=== PATIENT | male | born 1975 | race Caucasian/White ===

== ENCOUNTER 2017-05-14 14:00 | Outpatient (CLI) | payer BC ==
[~2017-05-14] VITALS: Ht 182.9 cm; Wt 113.4 kg
[2017-05-14] MEDS ORDERED: MULT1TAB69 PO (14:30)
[2017-05-14] MEDS ORDERED: CETI10TA17 PO (14:30)
[2017-05-14] MEDS ORDERED: ASCO-129 PO (14:30)
[2017-05-14] MEDS ORDERED: OMG1KC PO (14:30)
== END 2017-05-14 14:51 ==
LOC: PREOP 14:00
PROVIDERS: ATTEND Urology
DX: Z01.818 Encounter for other preprocedural examination (principal); I86.1 Scrotal varices

== ENCOUNTER 2017-05-19 05:59 | Day surgery (SDC) | payer BC, MEDICAID ==
[~2017-05-19] VITALS: Ht 182.9 cm; Wt 113.4 kg
[~2017-05-19 05:59] MED LIST: ASCO-129 PO; CETI10TA17 PO; MULT1TAB69 PO; OMG1KC PO
[2017-05-19] MEDS ORDERED: NS (IVPB) 50 ML ONE (06:18)
[2017-05-19] MEDS ORDERED: ceFAZolin 1,000 MG (ANCEF) VIAL ONE (06:18)
[2017-05-19 06:20] VITALS: BP 141/101
[2017-05-19] MEDS ORDERED: FAMOTIDINE 20MG/2ML IV (PEPCID) IV ONE (06:30)
[2017-05-19] MEDS: LACTATED RINGERS 1,000 ML IV PRN ×3 (06:43→09:05)
[2017-05-19] MEDS ORDERED: ceFAZolin INJECTION 1,000 MG in NS (IVPB) 50 ML IV ONE (06:45)
[2017-05-19] MEDS ORDERED: MIDAZOLAM 2 MG/2 ML (VERSED) VIAL ONE (07:02)
--- NOTE | 2017-05-19 07:03 | Progress Note-Pre Operative ---
Pre-Operative Progress Note H&P Reviewed The H&P was reviewed, patient examined and no changes noted. Date Seen by Provider: May 19, 2017 Time Seen by Provider: 07:03 Date H&P Reviewed: May 19, 2017 Time H&P Reviewed: 07:03 Pre-Operative Diagnosis: LT TESTICULAR PAIN AND GRADE 3 LT VARICOCELE KYLE MONTERROSO MD May 19, 2017 7:03 am
--- NOTE | 2017-05-19 07:04 | Progress Note-Post Operative ---
Post-Operative Progess Note Surgeon (s)/Pulp Beater (s) Surgeon KYLE MONTERROSO MD Pulp Beater: N/A Pre-Operative Diagnosis LT TESTICULAR PAIN AND GRADE 3 LT VARICOCELE Post-Operative Diagnosis SAME Procedure & Operative Findings Date of Procedure 05/19/17 Procedure Performed/Findings LT SPERMATIC VEIN LIGATION Anesthesia Type GENERAL Estimated Blood Loss Estimated blood loss (mL): NEGLIGIBLE Specimens/Packing Specimens Removed LT SPERMATIC VEINS Packing: N/A KYLE MONTERROSO MD May 19, 2017 7:04 am
--- NOTE | 2017-05-19 07:07 | Discharge Inst-Urology ---
Discharge Inst-Urology Discharge Medications New, Converted, or Re-newed RX: RX on Chart Patient Instructions/Follow Up Plan Please make appointment to been seen in office in 2 weeks. Rest till then and scrotal support Showers, no bath Ice to Lt groin and scrotum in RR and then at home for 6 hrs and then PRN Increase oral fluids for 48 hours and then as needed. Diet and Activity as tolerated. If questions or concerns contact your physician Or seek help at emergency department. KYLE MONTERROSO MD May 19, 2017 7:07 am
[2017-05-19] MEDS ORDERED: morphine INJ 10 MG/ML 1ML (SYR OR VIAL) ONE (07:38)
[2017-05-19] MEDS ORDERED: ROCURONIUM 50 MG/5 ML (ZEMURON) VIAL IV ONE (08:17)
[2017-05-19] MEDS ORDERED: LIDOCAINE PF 2% 5 ML (XYLOCAINE) VIAL ONE (08:17)
[2017-05-19] MEDS ORDERED: proPOfol 200 MG/20 ML (DIPRIVAN) VIAL IV ONE (08:17)
[2017-05-19] MEDS ORDERED: SEVOFLURANE (ULTANE) 15 ML INHAL SOLN ONE ×2 (08:17→08:34)
[2017-05-19] MEDS ORDERED: LIDOCAINE JELLY 2% (XYLOCAINE) 5 ML TUBE ONE (08:17)
[2017-05-19] MEDS ORDERED: CEPH-507 PO (08:43)
[2017-05-19] MEDS ORDERED: HYDR-3874 PO (08:43)
[2017-05-19] MEDS ORDERED: MEPERIDINE (DEMEROL) INJ 50 MG/ML IVP PRN (08:45)
[2017-05-19] MEDS ORDERED: ONDANSETRON 4 MG/2 ML (SDV) Z0FRAN IVP PRN (08:45)
[2017-05-19] MEDS: morphine INJ 10 MG/ML 1ML (SYR OR VIAL) IVP PRN ×3 (08:57→09:07)
[2017-05-19 09:40] VITALS: BP 144/88
[2017-05-19] MEDS ORDERED: HYDROcodone/APAP 5 MG/325 MG (LORTAB) TAB ONE (09:42)
[2017-05-19] MEDS ORDERED: HYDROcodone/APAP 5 MG/325 MG (LORTAB) TAB PO PRN (10:00)
[2017-05-19 10:10] VITALS: BP 146/88
[2017-05-19 10:40] VITALS: BP 127/87
[2017-05-19 12:00] VITALS: BP 127/87
--- NOTE | 2017-05-19 16:51 | OPERATIVE REPORT ---
DATE OF SERVICE: 05/19/2017 PREOPERATIVE DIAGNOSIS: Left grade 3 varicocele with orchialgia refractory to medical treatment. POSTOPERATIVE DIAGNOSIS: Left grade 3 varicocele with orchialgia refractory to medical treatment. OPERATION PERFORMED: Left spermatic vein ligation. SURGEON: Kyle Monterroso M.D. ANESTHESIA: General. COMPLICATIONS: None. PROCEDURE: The patient under general anesthesia in supine position, genitalia, abdomen and thigh were prepped and draped in the usual sterile fashion. A left inguinal incision was made, carried through the skin, subcutaneous tissue and Marcel's fascia. The spermatic cord was seen right there, very redundant, and I folded to the opening into the external oblique. I could identify easily 2 large spermatic veins present there. So I went ahead and excised a good portion of the larger one very proximally and with 2-0 silk ligatures. Then, the other one was also dealt similarly, it was smaller in size. There was no further enlarged veins at this point. There were no enlarged veins in the inguinal floor. I did not see any recent opened external oblique since the veins were removed successfully. I replaced his spermatic cord and pulled on the testicle, which fold with the spermatic cord as much as allowed. A closure was performed in 2 layers, the Marcel's and subcutaneous tissue with interrupted 3-0 plain and the skin with surrounding 4-0 Vicryl subcuticular suture. Steri-Strips and dressing was applied. Estimated blood loss, negligible. [place], instrument counts correct x2. The patient tolerated the procedure and anesthesia well and was sent to recovery room in stable condition. Job ID: [id number] DocumentID: [id number] Dictated Date: 05/19/2017 08:30:35 Systems Requirements Planner Date: 05/19/2017 13:20:01 Dictated By: KYLE MONTERROSO MD
== END 2017-05-19 12:10 | disposition home or self-care (01) ==
LOC: SDC 05:59
PROVIDERS: ATTEND Urology
DX: I86.1 Scrotal varices (principal); K21.9 Gastro-esophageal reflux disease without esophagitis; G47.33 Obstructive sleep apnea (adult) (pediatric)
CPT/HCPCS: 87081

== ENCOUNTER 2017-08-05 13:31 | Observation (INO) | payer BC, MEDICAID ==
[~2017-08-05] VITALS: Ht 182.9 cm; Wt 106.3 kg
[~2017-08-05 13:31] MED LIST changes: -LEVO500T80 PO; -LOPE-134 PO; -NAPR-915 PO
--- NOTE | 2017-08-05 14:01 | ED GU-Male ---
General Chief Complaint: -Male Stated Complaint: TESTICULAR PAIN Nursing Triage Note: Patient advises testicular pain for approximately one week that has become progressively worse. He advises he had an ultrasound done this morning after seeing Dr. Monterroso and was advised he may have a testicular torsion. Pt. states was supposed to see Dr. Monterroso at 2m today however the pain has become progressively worse. Source: patient Exam Limitations: no limitations History of Present Illness Date Seen by Provider: Aug 05, 2017 Time Seen by Provider: 13:49 Initial Comments Here with complaint of left testicular pain that's been intermittent over the last week. Much worse since this morning. He did have ultrasound today that had some findings concerning for possible torsion on the left side. His postoperative an appointment with Dr. Monterroso at 2 p.m. today but pain was worsening significant to the ER. He did try Naprosyn this morning. Last meal was at 830 this morning. Denies dysuria or diarrhea. Does complain of swelling to the cord of the testicle into the groin area. Timing/Duration: week, getting worse, intermittent Severity/Quality: moderate, severe, aching Location: scrotal Radiation: left flank Activities at Onset: none Sexual [place] History: single partner Associated Symptoms: abdominal pain, No dysuria, No fever/chills, No lower back pain, No mass, No nausea/vomiting, swelling, No urinary frequency Allergies and Home Medications Allergies Coded Allergies: Penicillins (Verified Allergy, Unknown, HIVES, 05/14/17) fentanyl (Verified Allergy, Unknown, itching, 05/14/17) sulfamethoxazole (Verified Allergy, Unknown, vomiting, 05/14/17) trimethoprim (Verified Allergy, Unknown, vomiting, 05/14/17) Home Medications Ascorbic Acid 500 Mg Tablet.er, 500 MG PO DAILY, (Reported) Cephalexin 500 Mg Capsule, 500 MG PO BID Prescribed by: DENISE PUENTE on 05/19/17842 Cetirizine HCl 10 Mg Tablet, 10 MG PO DAILY, (Reported) Hydrocodone/Acetaminophen 1 Each Tablet, 1-2 EACH PO Q4H PRN for PAIN Prescribed by: DENISE PUENTE on 05/19/17842 Multivitamin 1 Each Tablet, 1 EACH PO DAILY, (Reported) [place] 3 Polyunsat Fatty Acids 1,000 Mg Cap, 1,000 MG PO DAILY, (Reported) Patient Home Medication List Home Medication List Reviewed: Yes Constitutional: see HPI, chills, fever EENTM: no symptoms reported Respiratory: no symptoms reported Cardiovascular: no symptoms reported Gastrointestinal: No diarrhea, No nausea, No vomiting Genitourinary: denies dysuria, pain Musculoskeletal: no symptoms reported Skin: no symptoms reported All Other Systemes Reviewed Negative Unless Noted: Yes Past Uvzjlho-Csguqj-Qophwr Hx Patient Social History Alcohol Use: Occasionally Uses Recreational Drug Use: No Smoking Status: Never a Smoker Recent Foreign Travel: No Contact w/Someone Who Travel: No Recent Infectious Disease Expo: No Recent Hopitalizations: No Physical Abuse: No Sexual Abuse: No Immunizations Up To Date Date of Influenza Vaccine: Feb 07, 2017 Seasonal Allergies Seasonal Allergies: Yes Surgeries History of Surgeries: Yes (COLON RESECTION WITH COLOSTOMY THEN REVERSAL, varicous vein ) Surgeries: Testicular Respiratory History of Respiratory Disorde: No (MILD SLEEP APNEA) Cardiovascular History of Cardiac Disorders: No Neurological History of Neurological Disord: No Gastrointestinal History of Gastrointestinal Di: Yes Gastrointestinal Disorders: Colitis, Irritable Bowel Musculoskeletal History of Musculoskeletal Dis: No Endocrine History of Endocrine Disorders: No Cancer History of Cancer: No Psychosocial History of Psychiatric Problem: No Suicide Risk Score: 0 Integumentary History of Skin or Integumenta: No Blood Transfusions History of Blood Disorders: No Reviewed Nursing Assessment Reviewed/Agree w Nursing PMH: Yes Family Medical History Significant Family History: No Pertinent Family Hx Physical Exam Vital Signs Vital Signs - First Documented 08/05/17 13:43 Temp 98.6 Pulse 87 Resp 14 B/P (MAP) 133/100 (111) Pulse Ox 98 O2 Delivery Room Air Capillary Refill : Less Than 3 Seconds General Appearance: WD/WN, no apparent distress HEENT: PERRL/EOMI, pharynx normal Neck: full range of motion, supple Cardiovascular: regular rate, rhythm, no murmur Respiratory: lungs clear, normal breath sounds Gastrointestinal: non tender, soft Back: normal inspection, no CVA tenderness, no vertebral tenderness Extremities: non-tender, normal inspection Neurologic/Psychiatric: alert, oriented x 3 Skin: normal color, warm/dry Progress/Results/Core Measures Suspected Sepsis Recent Fever Within 48 Hours: No Infection Criteria Present: None New/Unexplained Altered Menta: No Sepsis Screen: No Definite Risk Sepsis Diagnosis: SIRS Temperature:98.6 Pulse: 87 Respiratory Rate: 14 Laboratory Tests 08/05/17 14:05: White Blood Count 6.7 Blood Pressure 133 /100 Mean: 111 Laboratory Tests 08/05/17 14:05: Platelet Count 218 Results/Orders Lab Results Laboratory Tests Test 08/05/17 14:00 08/05/17 14:05 Range/Units Urine Color YELLOW Urine Clarity CLEAR Urine pH 7 5-9 Urine Specific [place] 1.015 L 1.016-1.022 Urine Protein NEGATIVE NEGATIVE Urine Glucose (UA) NEGATIVE NEGATIVE Urine Ketones NEGATIVE NEGATIVE Urine Nitrite NEGATIVE NEGATIVE Urine Bilirubin NEGATIVE NEGATIVE Urine Urobilinogen NORMAL NORMAL MG/DL Urine Leukocyte Esterase NEGATIVE NEGATIVE Urine RBC (Auto) NEGATIVE NEGATIVE Urine RBC RARE /HPF Urine WBC NONE /HPF Urine Squamous Epithelial Cells NONE /HPF Urine Crystals NONE /LPF Urine Bacteria NEGATIVE /HPF Urine Casts NONE /LPF Urine Mucus NEGATIVE /LPF Urine Culture Indicated NO White Blood Count 6.7 4.3-11.0 10^3/uL Red Blood Count 5.29 4.35-5.85 10^6/uL Hemoglobin 15.1 13.3-17.7 G/DL Hematocrit 45 40-54 % Mean Corpuscular Volume 85 80-99 FL Mean Corpuscular Hemoglobin 29 25-34 PG Mean Corpuscular Hemoglobin Concent 34 32-36 G/DL Red Cell Distribution Width 13.7 10.0-14.5 % Platelet Count 218 130-400 10^3/uL Mean Platelet Volume 11.7 H 7.4-10.4 FL Neutrophils (%) (Auto) 60 42-75 % Lymphocytes (%) (Auto) 30 12-44 % Monocytes (%) (Auto) 6 0-12 % Eosinophils (%) (Auto) 4 0-10 % Basophils (%) (Auto) 0 0-10 % Neutrophils # (Auto) 4.0 1.8-7.8 X 10^3 Lymphocytes # (Auto) 2.0 1.0-4.0 X 10^3 Monocytes # (Auto) 0.4 0.0-1.0 X 10^3 Eosinophils # (Auto) 0.3 0.0-0.3 10^3/uL Basophils # (Auto) 0.0 0.0-0.1 10^3/uL My Orders Orders - ZOË AYALA MD Cbc With Automated Diff (08/05/17 13:59) Comprehensive Metabolic Panel (08/05/17 13:59) Ua Culture If Indicated (08/05/17 13:59) Saline Lock/Iv-Start (08/05/17 13:59) Morphine Injection (Morphine Injection (08/05/17 14:04) Ceftriaxone Injection (Rocephin Injectio (08/05/17 14:30) Vital Signs/I&O Vital Sign - Last 12Hours 08/05/17 13:43 Temp 98.6 Pulse 87 Resp 14 B/P (MAP) 133/100 (111) Pulse Ox 98 O2 Delivery Room Air Capillary Refill : Less Than 3 Seconds Blood Pressure Mean: 111 Progress Note : Progress Note Seen and evaluated. I did discuss the case with Dr. Monterroso on patient's arrival due to ultrasound results. He is in the OR now and will come up afterwards. He is requesting exam, labs and UA. IV, labs, UA and morphine 5 mg IV ordered due to significant pain. Monitor patient. 1411: Dr. Monterroso in the ER evaluating patient. 1425: Dr. Monterroso is requesting admission, Rocephin 1 g IV and to remain nothing by mouth. Orders written. Rocephin 1 g IV ordered. Admit, observation status. Patient agrees to plan. Diagnostic Imaging Diagonstic Imaging: Ultrasound Plain Films/CT/US/NM/MRI: other Comments US from earlier today. NAME: ERIN TRIANA [facility] REC#: [id number] PT STATUS: REG CLI : 1975 PHYSICIAN: KYLE MONTERROSO MD ADMIT DATE: 08/05/17/RAD Signed Date of Exam: 08/05/17 US SCROTUM (Testicle) [id number] INDICATION: Left testicular pain. Patient had prior scrotal surgery 2 months ago for varicosities. The right testicle measures 4.5 x 2.6 x 2.8 cm and the left testicle measures 3.0 x 2.2 x 2.4 cm. Right testicle demonstrates homogeneous echotexture. No discrete testicular masses seen. There is not normal blood flow on the right. Left testicle is heterogeneous and demonstrates generalized hypoechogenicity. In addition, no internal blood flow is detected, suspicious for testicular torsion. There is a varicocele along the lateral aspect of the left scrotum. No significant hydrocele on the left is present. There is a small right hydrocele. There is some mixed echogenicity noted in the region of the left groin left inguinal canal, nonspecific but could potentially represent a fat-containing hernia. No peristalsing bowel loops are seen. Impression: 1. No evidence of testicular mass. There is heterogeneity and hypoechogenicity involving the left testicle with no identifiable internal blood flow. Features are concerning for left testicular torsion. 2. Left varicocele. 3. Right hydrocele. 4. Heterogeneous tissue in the left groin, perhaps owing to a fat-containing inguinal hernia. No peristalsing herniated bowel loops are seen. Dr. Monterroso was notified of these results prior to this dictation. Dictated by: Dictated on workstation # [id number] Dict: 08/05/17 1011 Trans: 08/05/17 1049 Interpreted by: SOLA BOWMAN MD Electronically signed by: SOLA BOWMAN MD 08/05/17 1049 Departure Communication (Admissions) Time/Spoke to Admitting Phy: 13:47 Impression Impression: Primary Impression: Testicular/scrotal pain Disposition: ADMITTED INPATIENT Condition: Stable Admissions Decision to Admit Reason: Admit from ER (General) Decision to Admit/Date: Aug 05, 2017 Time/Decision to Admit Time: 14:25 Departure-Patient Inst. Referrals: FLOYD GUNTER MD (PCP/Family) Primary Care Physician ZOË AYALA MD Aug 05, 2017 14:01
[2017-08-05] MEDS ORDERED: morphine INJ 10 MG/ML 1ML (SYR OR VIAL) IVP STA (14:04)
[2017-08-05 14:24] LABS: BASOPHILS % (AUTO) 0 % (0-10); EOSINOPHILS # (AUTO) 0.3 10^3/uL (0.0-0.3); EOSINOPHILS % (AUTO) 4 % (0-10); HEMATOCRIT 45 % (40-54); HEMOGLOBIN 15.1 G/DL (13.3-17.7); LYMPHOCYTES % (AUTO) 30 % (12-44); MEAN CORPUSCULAR HEMOGLOBIN 29 PG (25-34); MEAN CORPUSCULAR HGB CONC 34 G/DL (32-36); MEAN CORPUSCULAR VOLUME 85 FL (80-99); MEAN PLATELET VOLUME 11.7 FL (7.4-10.4); MONOCYTES # (AUTO) 0.4 X 10^3 (0.0-1.0); MONOCYTES % (AUTO) 6 % (0-12); NEUTROPHILS % (AUTO) 60 % (42-75); PLATELET COUNT 218 10^3/uL (130-400); RED BLOOD COUNT 5.29 10^6/uL (4.35-5.85); RED CELL DISTRIBUTION WIDTH 13.7 % (10.0-14.5); WHITE BLOOD COUNT 6.7 10^3/uL (4.3-11.0)
[2017-08-05 14:24] LABS: BILIRUBIN,URINE NEGATIVE (NEGATIVE); CLARITY,URINE CLEAR; COLOR,URINE YELLOW; GLUCOSE, URINE (UA) NEGATIVE (NEGATIVE); KETONES,URINE NEGATIVE (NEGATIVE); LEUKOCYTE ESTERASE ,URINE NEGATIVE (NEGATIVE); NITRITE,URINE NEGATIVE (NEGATIVE); PH,URINE 7 (5-9); PROTEIN,URINE NEGATIVE (NEGATIVE); UROBILINOGEN,URINE NORMAL (NORMAL)
[2017-08-05] MEDS ORDERED: cefTRIAXone INJECTION 1,000 MG in NS (IVPB) 100 ML IV ONE (14:30)
[2017-08-05 14:32] LABS: BACTERIA,URINE NEGATIVE /HPF; RBC,URINE RARE /HPF
[2017-08-05 15:13] LABS: ALANINE AMINOTRANSFERASE 35 U/L (0-55); ALBUMIN 4.1 GM/DL (3.2-4.5); ALKALINE PHOSPHATASE 72 U/L (40-136); BILIRUBIN,TOTAL 0.4 MG/DL (0.1-1.0); BUN/CREATININE RATIO 15; CALCIUM 8.8 MG/DL (8.5-10.1); CARBON DIOXIDE 26 MMOL/L (21-32); CHLORIDE 108 MMOL/L (98-107); CREATININE SERUM 0.78 MG/DL (0.60-1.30); GFR ESTIMATED > 60; GLUCOSE 78 MG/DL (70-105); POTASSIUM 3.4 MMOL/L (3.6-5.0); SODIUM 141 MMOL/L (135-145); TOTAL PROTEIN 6.7 GM/DL (6.4-8.2)
[2017-08-05] MEDS ORDERED: NAPR-915 PO (15:16)
[2017-08-05] MEDS ORDERED: LEVO500T80 PO (15:16)
[2017-08-05 15:43] VITALS: BP 131/87
[2017-08-05] MEDS: NS IV 1000 ML 1,000 ML IV SCH (16:11)
[2017-08-05] MEDS ORDERED: ONDANSETRON 4 MG/2 ML (SDV) Z0FRAN IV PRN (16:15)
[2017-08-05] MEDS ORDERED: diphenhydrAMINE 50 MG/ML INJ (BENADRYL) IV PRN (16:15)
[2017-08-05] MEDS ORDERED: CATHETER FLUSH 10 ML SYR IV PRN (16:15)
--- NOTE | 2017-08-05 18:39 | HISTORY AND PHYSICAL ---
DATE OF SERVICE: CHIEF COMPLAINT: Left testicular pain. HISTORY OF PRESENT ILLNESS: A 42-year-old white man, who underwent an uneventful left spermatic vein ligation on 05/19/2017 for a symptomatic left grade III varicocele. He had a good recovery except that he was having pain and swelling in the left scrotum, was treated for epididymitis, first seen on 05/22 and then he was seen again on the . He was doing and feeling much better. Because the epididymis was still enlarged and firm, I elected to continue the antibiotic for another 10 days. He came back on 07/08 back to normal with no problem, no swelling, no pain. However, on 07/31, I saw him in [facility] complaining again of low back pain radiating to the left testicle, tenderness and firmness again in the left scrotum. He had a recurrent left epididymitis. The epididymis was firm and tender as well as the spermatic cord. He was put again on Levaquin because he was allergic to Bactrim and some Naprosyn. A testicular ultrasound was ordered, which was done this morning and was concerned about the vascularity of the testicle. The patient denies any other complaints. SOCIAL HISTORY: , 1 child. No smoking, no alcohol, no drugs. FAMILY HISTORY: Diabetes and cancer of cervix. ALLERGIES: He is allergic to PENICILLIN and BACTRIM. No anaphylaxis. MEDICAL ILLNESSES: Ulcerative colitis, depression and history of stones. MEDICATION: Per chart. PAST SURGICAL HISTORY: Beside the above-mentioned one bowel surgery for ulcerative colitis. PHYSICAL EXAMINATION: VITAL SIGNS: Per chart. GENERAL: Well-nourished, well-developed, in no acute distress at all. SKIN: Warm and dry. HEENT: The head is normocephalic. NECK: Supple. No bruits. ENT: No pallor, no icterus. CHEST: Clear and nontender. HEART: Regular rate and rhythm, no murmur. ABDOMEN: Soft, nontender. EXTREMITIES: Lower extremities with no edema or cyanosis. NEUROLOGIC: Grossly intact. Oriented x3. GENITOURINARY: Phallus circumcised and adequate meatus. Examination of the scrotum is completely normal. Both testicles are down in the scrotum normal. Not drawn up. Normal cremasteric reflex. The only abnormality was that the left spermatic cord was little enlarged and tender and firm as well as the epididymis. There was some tenderness over the testicle. IMPRESSION: Left epididymal orchitis, acute on top of chronic, doubt testicular torsion. PLAN: I had a lengthy discussion with the patient and his explaining them the situation and give the option of scrotal exploration for any possible torsion, which clinically does not fit the diagnosis, especially the lack of acuteness, lack of severity, the age of the patient, physical examination, versus admit for IV Rocephin, observe, recheck in couple of hours and decide again. We will keep the patient n.p.o. in case they elected that option understanding the possibility of losing the testicle if it is indeed torsion that was the only way to find out was to explore. We will recheck the patient in a couple of hours and decide accordingly. I came back 2 hours later, examined him and no change. We re-discussed again the possibilities with the patient and his and elected to continue observation and manage according to the progress. 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 Job ID: [id number] DocumentID: [id number] Dictated Date: 08/05/2017 18:12:32 Ventilating Engineer Date: 08/05/2017 18:38:15 Dictated By: KYLE MONTERROSO MD
[2017-08-05] MEDS: morphine INJ 4 MG/ML 1 ML (VIAL/SYRINGE) IV PRN (19:37)
[2017-08-05 20:00] VITALS: BP 133/87
[2017-08-06] VITALS (7 sets, daily range): BP systolic 124–134; BP diastolic 65–87
[2017-08-06] MEDS: NS IV 1000 ML 1,000 ML IV SCH (04:23)
[2017-08-06] MEDS: cefTRIAXone 1 GM/NS 100 ML IVPB IV SCH ×2 (09:32)
--- NOTE | 2017-08-06 11:19 | Progress Note-Urology ---
Progress Note-Urology Progress Notes/Assess & Plan Progress/Assessment & Plan AFEBRILE, VSS. DOING AND FEELING MUCH BETTER. PAIN MUCH BETTER. SPERMATIC CORD AND EPIDIDYMIS MUCH SOFTER AND LESS SWOLLEN, NOT TENDER. TESTIS FEELS NORMAL AND NON TENDER. Final Diagnosis LT EPIDIDYMOORCHITIS KYLE MONTERROSO MD Aug 06, 2017 11:19
[2017-08-06] MEDS ORDERED: LOPE-134 PO (11:53)
[2017-08-06] MEDS: morphine INJ 4 MG/ML 1 ML (VIAL/SYRINGE) IV PRN (21:20)
[2017-08-07 04:00] VITALS: BP 145/86
[2017-08-07 07:56] VITALS: BP 133/90
--- NOTE | 2017-08-07 08:50 | Progress Note-Urology ---
Progress Note-Urology Progress Notes/Assess & Plan Progress/Assessment & Plan CONTINUES IMPROVING. NO COMPLAINTS. DISCHARGE WITH INSTRUCTIONS AND RX Final Diagnosis LT EPIDIDYMOORCHITIS KYLE MONTERROSO MD Aug 07, 2017 8:50 am
--- NOTE | 2017-08-07 08:55 | Discharge Inst-Urology ---
Discharge Inst-Urology Discharge Medications New, Converted, or Re-newed RX: RX given to Patient/Fam Patient Instructions/Follow Up Plan Discharge after Rocephin dose today with scrotal support for 10 days Patient is all set with Rx to get OP IV ABX (Rocephin 1gm every 24hrs) at [facility] ED for 7 days starting tomorrow morning Keep appointment in August No heavy lifting or straining or sex a week Ice PRN to scrotum Increase oral fluids for 48 hours and then as needed. Activity as tolerated. If questions or concerns contact your physician Or seek help at emergency department. KYLE MONTERROSO MD Aug 07, 2017 8:55 am
[2017-08-07] MEDS: cefTRIAXone 1 GM/NS 100 ML IVPB IV SCH ×2 (09:40)
[2017-08-07] MEDS: NS IV 1000 ML 1,000 ML IV SCH ×2 (09:41→09:42)
== END 2017-08-07 08:50 | disposition home or self-care (01) ==
LOC: EDUNIT# 13:31 → ER 13:33 → 4TH 14:52 → UNDOADMOB 14:52 → 4TH 15:42
PROVIDERS: ADMIT Urology; ATTEND Urology
DX: N45.3 Epididymo-orchitis (principal); K51.90 Ulcerative colitis, unspecified, without complications; F32.9 Major depressive disorder, single episode, unspecified; Z87.442 Personal history of urinary calculi; Z88.0 Allergy status to penicillin; Z88.1 Allergy status to other antibiotic agents
CPT/HCPCS: 36415; 80053; 81000; 85025; 96365; 96375; G0378

== ENCOUNTER → 2017-08-05 | Outpatient (CLI) | payer BC, MEDICAID ==
[~2017-08-05] MED LIST changes: +CEPH-507 PO; +HYDR-3870 PO; +LEVO500T80 PO; +LOPE-134 PO; +NAPR-915 PO
--- NOTE | 2017-08-05 10:32 | Diagnostic Imaging Report ---
INDICATION: Left testicular pain. Patient had prior scrotal surgery 2 months ago for varicosities. The right testicle measures 4.5 x 2.6 x 2.8 cm and the left testicle measures 3.0 x 2.2 x 2.4 cm. Right testicle demonstrates homogeneous echotexture. No discrete testicular masses seen. There is not normal blood flow on the right. Left testicle is heterogeneous and demonstrates generalized hypoechogenicity. In addition, no internal blood flow is detected, suspicious for testicular torsion. There is a varicocele along the lateral aspect of the left scrotum. No significant hydrocele on the left is present. There is a small right hydrocele. There is some mixed echogenicity noted in the region of the left groin left inguinal canal, nonspecific but could potentially represent a fat-containing hernia. No peristalsing bowel loops are seen. Impression: 1. No evidence of testicular mass. There is heterogeneity and hypoechogenicity involving the left testicle with no identifiable internal blood flow. Features are concerning for left testicular torsion. 2. Left varicocele. 3. Right hydrocele. 4. Heterogeneous tissue in the left groin, perhaps owing to a fat-containing inguinal hernia. No peristalsing herniated bowel loops are seen. Dr. Griffin was notified of these results prior to this dictation. Dictated by: Dictated on workstation # [id number]
== END ==
LOC: RAD 08:50
PROVIDERS: ATTEND Urology
DX: I86.1 Scrotal varices (principal); N43.3 Hydrocele, unspecified; N45.1 Epididymitis
CPT/HCPCS: 76870

== ENCOUNTER → 2019-07-13 | Outpatient (CLI) | payer BC, MEDICAID, OTHER ==
[~2019-07-13] MED LIST changes: +LEVO500T80 PO; +LOPE-134 PO; +NAPR-915 PO
== END ==
LOC: CARD 09:40
PROVIDERS: ATTEND Internal Medicine Cardiovascular Disease
DX: R07.89 Other chest pain (principal); I10 Essential (primary) hypertension; E66.9 Obesity, unspecified; E78.2 Mixed hyperlipidemia
CPT/HCPCS: 93306; 93351

== ENCOUNTER → 2019-09-12 | Outpatient (CLI) | payer OTHER ==
--- NOTE | 2019-09-12 13:07 | Diagnostic Imaging Report ---
PROCEDURE: CT abdomen and pelvis without contrast. TECHNIQUE: Multiple contiguous axial images were obtained through the abdomen and pelvis without the use of intravenous contrast. Auto Exposure Controls were utilized during the CT exam to meet ALARA standards for radiation dose reduction. INDICATION: Abdominal pain. COMPARISON: None. FINDINGS: The included portions of the lung bases are clear. CT ABDOMEN: The patient is status post previous colectomy. The small bowel loops are nondistended. A nonobstructive left renal calculus is identified. No renal calculi are seen on the right. No ureteral calculi identified on either side. Additionally, there is no hydroureteronephrosis or other evidence of obstruction. No focal renal masses are seen on this noncontrast exam. The adrenal glands, spleen, pancreas, and liver have an unremarkable noncontrast CT appearance. There is no loculated fluid collection, free fluid, or free air within the abdomen. No abnormal mesenteric or retroperitoneal adenopathy is seen. The osseous structures show no acute abnormalities. CT PELVIS: The urinary bladder is unopacified. No calculi are seen within the bladder. There is no loculated fluid collection, free fluid, or free air within the pelvis. No abnormal lymph nodes are identified. The osseous structures show no acute abnormalities. IMPRESSION: 1. No acute abnormalities are seen within the abdomen or pelvis. 2. Single punctate nonobstructive left renal calculus. Dictated by: Dictated on workstation # [id number]
== END ==
LOC: RAD 10:59
PROVIDERS: ATTEND Family Medicine
DX: N20.0 Calculus of kidney (principal)
CPT/HCPCS: 74176

== ENCOUNTER → 2019-09-20 | Outpatient (CLI) | payer OTHER ==
[2019-09-20 16:21] LABS: CHLORIDE 108 MMOL/L (98-107); POTASSIUM 3.8 MMOL/L (3.6-5.0); SODIUM 141 MMOL/L (135-145)
[2019-09-20 16:22] LABS: CALCIUM 8.9 MG/DL (8.5-10.1)
[2019-09-20 16:23] LABS: GLUCOSE 103 MG/DL (70-105); TOTAL PROTEIN 6.8 GM/DL (6.4-8.2)
[2019-09-20 16:24] LABS: CARBON DIOXIDE 26 MMOL/L (21-32)
[2019-09-20 16:25] LABS: BILIRUBIN,TOTAL 0.2 MG/DL (0.1-1.0)
[2019-09-20 16:26] LABS: ALKALINE PHOSPHATASE 67 U/L (40-136)
[2019-09-20 16:27] LABS: CREATININE SERUM 1.13 MG/DL (0.60-1.30); GFR ESTIMATED > 60
[2019-09-20 16:28] LABS: BUN/CREATININE RATIO 11
[2019-09-20 16:29] LABS: ALANINE AMINOTRANSFERASE 43 U/L (0-55)
== END ==
LOC: LAB 15:53
PROVIDERS: ATTEND Family Medicine
DX: R10.9 Unspecified abdominal pain (principal)
CPT/HCPCS: 36415; 80053

== ENCOUNTER → 2019-10-04 | Outpatient (CLI) | payer OTHER ==
[~2019-10-04] MED LIST changes: +CATHETER FLUSH 10 ML SYR IV PRN
--- NOTE | 2019-10-04 15:52 | Diagnostic Imaging Report ---
INDICATION: Epigastric pain. EXAMINATION: Hepatobiliary scan with gallbladder ejection. TECHNIQUE: 4.75 mCi of technetium 99m Choletec was given intravenously for the scan. 1 can of Ensure was given at 60 minutes with another at 120 minutes. FINDINGS: There is homogeneous uptake of isotope throughout the liver. The cystic duct and common duct are both patent. The gallbladder ejection fraction is 15%. IMPRESSION: The cystic duct and common duct are both patent. The gallbladder ejection fraction was 15%. Dictated by: Dictated on workstation # [id number]
== END ==
LOC: CARD 12:44
PROVIDERS: ATTEND Family Medicine
DX: R10.13 Epigastric pain (principal)
CPT/HCPCS: 78227

== ENCOUNTER 2019-10-14 08:08 | Outpatient (RCR) | payer OTHER ==
[~2019-10-14] VITALS: Ht 182 cm; Wt 113.0 kg
[~2019-10-14 08:08] MED LIST changes: -CATHETER FLUSH 10 ML SYR IV PRN; +LOSA50TA63 PO
== END 2019-10-14 14:06 | disposition home or self-care (01) ==
LOC: PREOP 08:08
PROVIDERS: ATTEND Surgery
DX: Z01.812 Encounter for preprocedural laboratory examination (principal); Z20.828 Contact with and (suspected) exposure to other viral communicable diseases; K82.8 Other specified diseases of gallbladder
CPT/HCPCS: 87635

== ENCOUNTER 2019-10-19 06:52 | Day surgery (SDC) | payer OTHER ==
[2019-10-19] VITALS (11 sets, daily range): BP systolic 111–130; BP diastolic 76–93
[~2019-10-19] VITALS: Ht 182 cm; Wt 113.0 kg
--- OUTSIDE RECORDS SUMMARY | 2019-10-19 06:56 | XMS REPORT ---
Author Author Chago Solo Organization [facility] Address [address] [place], [place] [id number] Care Team Providers Care Director Of Sales Support Name Role Phone Samra Solo PCP Allergies and Adverse Reactions Name Reaction Notes PENICILLINS fentanyl Plan of Treatment Not available. Medications Active Name Start Date Estimated Completion Date SIG Co mments Zyrtec oral Fish Oil oral Problem List Not available. Vital Signs Date Time BP-Sys(mm[Hg] BP-Deandra(mm[Hg]) HR(bpm) RR(rpm) Temp WT HT HC BMI BSA BMI Percentile O2 Sat(%) 12/13/2018 8:04:00 AM 124 mmHg 74 mmHg 79 bpm 16 rpm 97.8 F 248 lbs 72 in 33.6345 kg/m 2.3905 m 97 % Social History Name Description Comments Tobacco Former smoker History of Procedures Not available. Results Summary Not available. History Of Immunizations Not available. History of Past Illness Name Date of Onset Comments Kidney stone Latent tuberculosis Encounter for occupational health examination Dec 13 2018 8 :06AM Payers Insurance Name Company Name Plan Name Plan Number Policy Number [place] Group Number Start Date 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
--- OUTSIDE RECORDS SUMMARY | 2019-10-19 06:56 | XMS REPORT | Continuity of Care Document ---
Author Organization Unknown Address Unknown Phone Unavailable Allergies Active Description Code Type Severity Reaction Onset Reported/Identified Relationship to Patient Clinical Status Yes fentanyl [id number] Drug Allergy Unknown itching 08/05/2017 Yes Penicillins [id number] Drug Aller gy Unknown HIVES 08/05/2017 Yes sulfamethoxazole [id number] Drug Allergy Unknown vomiting 08/05/2017 Yes trimethoprim [id number] Drug Allergy Unknown vomiting 08/05/2017 Yes fentanyl [id number] Drug Allergy Mild itching 10/12/2019 Yes Penicillins [id number] Drug Aller gy Mild HIVES 10/12/2019 Yes sulfamethoxazole [id number] Drug Allergy Mild vomiting 10/12/2019 Yes trimethoprim [id number] Drug Allergy Mild vomiting 10/12/2019 Medications There is no data. Problems Date Dx Coded Attending Type Code Diagnosis Diagnosed By 04/09/1405 ALEX STILL DO Ot K82.8 OTHER SPECIFIED DISEASES OF GALLBLADDER 04/09/1405 ALEX STILL DO Ot Z01.8 12 ENCOUNTER FOR PREPROCEDURAL LABORATORY E 04/09/1405 ALEX STILL DO Ot Z20.8 28 CONTACT W AND EXPOSURE TO OTH VIRAL COMM 05/14/2017 KYLE MONTERROSO MD Ot I86.1 SCROTAL VARICES 05/14/2017 KYLE MONTERROSO MD Ot Z01.8 18 ENCOUNTER FOR OTHER PREPROCEDURAL EXAMIN 05/19/2017 KYLE MONTERROSO MD Ot G47.3 3 OBSTRUCTIVE SLEEP APNEA (ADULT) (PEDIATR 05/19/2017 KYLE MONTERROSO MD Ot I86.1 SCROTAL VARICES 05/19/2017 KYLE MONTERROSO MD Ot K21.9 GASTRO-ESOPHAGEAL REFLUX DISEASE WITHOUT 05/21/2017 KYLE MONTERROSO MD Ot G47.3 3 OBSTRUCTIVE SLEEP APNEA (ADULT) (PEDIATR 05/21/2017 LOC MD, KYLE A Ot I86.1 SCROTAL VARICES 05/21/2017 LOC JONES, KYLE Link Ot K21.9 GASTRO-ESOPHAGEAL REFLUX DISEASE WITHOUT 08/06/2017 LOC JONES, KYLE Link Ot I86.1 SCROTAL VARICES 08/06/2017 KYLE MONTERROSO MD Ot N43.3 HYDROCELE, UNSPECIFIED 08/06/2017 LOC JONES, KYLE Link Ot N45.1 EPIDIDYMITIS 08/06/2017 LOC JONES, KYLE Link Ot Z86.7 9 PERSONAL HISTORY OF OTHER DISEASES OF TH 08/07/2017 LOC JONES, KYLE Link Ot F32.9 MAJOR DEPRESSIVE DISORDER, SINGLE EPISOD 08/07/2017 LOC JONES, KYLE Link Ot K51.9 0 ULCERATIVE COLITIS, UNSPECIFIED, WITHOUT 08/07/2017 LOC JONES, KYLE Link Ot N45.3 EPIDIDYMO-ORCHITIS 08/07/2017 LOC JONES, KYLE Link Ot Z87.4 42 PERSONAL HISTORY OF URINARY CALCULI 08/07/2017 LOC JONES, KYLE Link Ot Z88.0 ALLERGY STATUS TO PENICILLIN 08/07/2017 LOC JONES, KYLE Link Ot Z88.1 ALLERGY STATUS TO OTHER ANTIBIOTIC AGENT 08/27/2017 KYLE MONTERROSO MD Ot I86.1 SCROTAL VARICES 08/27/2017 LOC JONES, KYLE Link Ot N43.3 HYDROCELE, UNSPECIFIED 08/27/2017 LOC JONES, KYLE Link Ot N45.1 EPIDIDYMITIS 09/18/2017 KYLE MONTERROSO MD Ot I86.1 SCROTAL VARICES 09/18/2017 LOC JONES, KYLE Link Ot N43.3 HYDROCELE, UNSPECIFIED 09/18/2017 LOC JONES, KYLE Link Ot N45.1 EPIDIDYMITIS 02/23/2018 KYLE MONTERROSO MD Ot I86.1 SCROTAL VARICES 02/23/2018 KYLE MONTERROSO MD Ot N43.3 HYDROCELE, UNSPECIFIED 02/23/2018 KYLE MONTERROSO MD Ot N45.1 EPIDIDYMITIS 04/17/2019 KYLE MONTERROSO MD Ot I86.1 SCROTAL VARICES 04/17/2019 KYLE MONTERROSO MD Ot N43.3 HYDROCELE, UNSPECIFIED 04/17/2019 LOC JONES, KYLE Link Ot N45.1 EPIDIDYMITIS 04/17/2019 LOC JONES, KYLE Link Ot I86.1 SCROTAL VARICES 04/17/2019 LOC JONES, KYLE Link Ot N43.3 HYDROCELE, UNSPECIFIED 04/17/2019 LOC JONES, KYLE Link Ot N45.1 EPIDIDYMITIS 06/22/2019 LOC JONES, KYLE Link Ot I86.1 SCROTAL VARICES 06/22/2019 LOC JONES, KYLE Link Ot N43.3 HYDROCELE, UNSPECIFIED 06/22/2019 LOC JONES, KYLE Link Ot N45.1 EPIDIDYMITIS 07/12/2019 LOC JONES, KYLE Link Ot I86.1 SCROTAL VARICES 07/12/2019 LOC JONES, KYLE Link Ot N43.3 HYDROCELE, UNSPECIFIED 07/12/2019 LOC JONES, KYLE Link Ot N45.1 EPIDIDYMITIS 07/13/2019 LOC JONES, KYLE Link Ot I86.1 SCROTAL VARICES 07/13/2019 LOC JONES, KYLE Link Ot N43.3 HYDROCELE, UNSPECIFIED 07/13/2019 LOC JONES, KYLE Link Ot N45.1 EPIDIDYMITIS 07/15/2019 BREEZY VALLES MD Ot E66. 9 OBESITY, UNSPECIFIED 07/15/2019 BREEZY VALLES MD Ot E78. 2 MIXED HYPERLIPIDEMIA 07/15/2019 BREEZY VALLES MD Ot I10 ESSENTIAL (PRIMARY) HYPERTENSION 07/15/2019 BREEZY VALLES MD Ot R07. 89 OTHER CHEST PAIN 08/09/2019 BREEZY VALLES MD Ot E66. 9 OBESITY, UNSPECIFIED 08/09/2019 BREEZY VALLES MD Ot E78. 2 MIXED HYPERLIPIDEMIA 08/09/2019 BREEZY VALLES MD Ot I10 ESSENTIAL (PRIMARY) HYPERTENSION 08/09/2019 BREEZY VALLES MD Ot R07. 89 OTHER CHEST PAIN 09/13/2019 LYRIC JONES, FLOYD Ot N20.0 CALCULUS OF KIDNEY 09/22/2019 FLOYD GUNTER MD Ot R10.9 UNSPECIFIED ABDOMINAL PAIN 10/06/2019 FLOYD GUNTER MD Ot R10.13 EPIGASTRIC PAIN Procedures There is no data. Results Test Result Range Methicillin resistant Staphylococcus aur eus (MRSA) screening culture - 05/19/17 06:13 Methicillin resistant Staphylococcus aureus (MRSA) scr eening culture NEG NRG Complete urinalysis with reflex to cultu re - 08/05/17 14:00 Urine color determination YELLOW NRG Urine clarity determination CLEAR NR G Urine pH measurement by test strip 7 5-9 Specific gravity of urine by test strip 1.015 1.016-1.022 Urine protein assay by test strip, semi-quantitative NEGATIVE NEGATIVE Urine glucose detection by automated test strip NE GATIVE NEGATIVE Erythrocytes detection in urine sediment by light micr oscopy NEGATIVE NEGATIVE Urine ketones detection by automated test strip NE GATIVE NEGATIVE Urine nitrite detection by test strip NEGATIVE NEGATIVE Urine total bilirubin detection by test strip NEGA TIVE NEGATIVE Urine urobilinogen measurement by automated test strip (mass/volume) NORMAL NORMAL Urine leukocyte esterase detection by dipstick NEG ATIVE NEGATIVE Automated urine sediment erythrocyte cou nt by microscopy (number/high power field) RARE NRG Automated urine sediment leukocyte count by microscopy (number/high power field) NONE NRG Bacteria detection in urine sediment by light microsco py NEGATIVE NRG Squamous epithelial cells detection in u rine sediment by light microscopy NONE NRG Crystals detection in urine sediment by light microsco py NONE NRG Casts detection in urine sediment by light microscopy NONE NRG Mucus detection in urine sediment by light microscopy NEGATIVE NRG Complete urinalysis with reflex to culture NO NRG Complete blood count (CBC) with automate d white blood cell (WBC) differential - 08/05/17 14:05 Blood leukocytes automated count (number/volume) 6.7 10*3/uL 4.3-11.0 Blood erythrocytes automated count (number/volume) 5.29 10*6/uL 4.35-5.85 Venous blood hemoglobin measurement (mass/volume) 15.1 g/dL 13.3-17.7 Blood hematocrit (volume fraction) 45 % 40-54 Automated erythrocyte mean corpuscular volume 85 [ foz_us] 80-99 Automated erythrocyte mean corpuscular h emoglobin (mass per erythrocyte) 29 pg 25-34 Automated erythrocyte mean corpuscular h emoglobin concentration measurement (mass/volume) 34 g/dL 32-36 Automated erythrocyte distribution width ratio 13. 7 % 10.0- 14.5 Automated blood platelet count (count/volume) 218 10*3/uL 130-400 Automated blood platelet mean volume measurement 11.7 [foz_us] 7.4-10.4 Automated blood neutrophils/100 leukocytes 60 % 42-75 Automated blood lymphocytes/100 leukocytes 30 % 12-44 Blood monocytes/100 leukocytes 6 % 0-12 Automated blood eosinophils/100 leukocytes 4 % 0-10 Automated blood basophils/100 leukocytes 0 % 0-10 Blood neutrophils automated count (number/volume) 4.0 10*3 1.8-7.8 Blood lymphocytes automated count (number/volume) 2.0 10*3 1.0-4.0 Blood monocytes automated count (number/volume) 0. 4 10*3 0.0-1.0 Automated eosinophil count 0.3 10*3/uL 0 .0-0.3 Automated blood basophil count (count/volume) 0.0 10*3/uL 0.0-0.1 Comprehensive metabolic panel - 08/05/17 14:45 Serum or plasma sodium measurement (moles/volume) 141 mmol/L 135-145 Serum or plasma potassium measurement (moles/volume) 3.4 mmol/L 3.6-5.0 Serum or plasma chloride measurement (moles/volume) 108 mmol/L 98-107 Carbon dioxide 26 mmol/L 21-32 Serum or plasma anion gap determination (moles/volume) 7 mmol/L 5-14 Serum or plasma urea nitrogen measurement (mass/volume ) 12 mg/dL 7-18 Serum or plasma creatinine measurement (mass/volume) 0.78 mg/dL 0.60-1.30 Serum or plasma urea nitrogen/creatinine mass ratio 15 NRG Serum or plasma creatinine measurement w ith calculation of estimated glomerular filtration rate > NRG Serum or plasma glucose measurement (mass/volume) 78 mg/dL 70-105 Serum or plasma calcium measurement (mass/volume) 8.8 mg/dL 8.5-10.1 Serum or plasma total bilirubin measurement (mass/volu me) 0.4 mg/dL 0.1-1.0 Serum or plasma alkaline phosphatase sherine surement (enzymatic activity/volume) 72 U/L 40-136 Serum or plasma aspartate aminotransfera se measurement (enzymatic activity/volume) 30 U/L 5-34 Serum or plasma alanine aminotransferase measurement (enzymatic activity/volume) 35 U/L 0-55 Serum or plasma protein measurement (mass/volume) 6.7 g/dL 6.4-8.2 Serum or plasma albumin measurement (mass/volume) 4.1 g/dL 3.2-4.5 Hep B Surface Ab - 12/13/18 08:45 Hep B Surface Ab, Qual Reactive Measles/Mumps/Rubella Immunity - 9 08:45 Rubella Antibodies, IgG 3.98 index Immun e >0.99 Rubeola Ab, IgG <25.0 AU/mL Immune >29.9 Mumps Abs, IgG 72.5 AU/mL Immune >10.9 Varicella-Zoster V Ab, IgG - 12/13/18 08 :45 Varicella Zoster IgG 3396 index Immune > 165 Comprehensive metabolic panel - 09/20/19 16:07 Serum or plasma sodium measurement (moles/volume) 141 mmol/L 135-145 Serum or plasma potassium measurement (moles/volume) 3.8 mmol/L 3.6-5.0 Serum or plasma chloride measurement (moles/volume) 108 mmol/L 98-107 Carbon dioxide 26 mmol/L 21-32 Serum or plasma anion gap determination (moles/volume) 7 mmol/L 5-14 Serum or plasma urea nitrogen measurement (mass/volume ) 12 mg/dL 7-18 Serum or plasma creatinine measurement (mass/volume) 1.13 mg/dL 0.60-1.30 Serum or plasma urea nitrogen/creatinine mass ratio 11 NRG Serum or plasma creatinine measurement w ith calculation of estimated glomerular filtration rate > NRG Serum or plasma glucose measurement (mass/volume) 103 mg/dL 70-105 Serum or plasma calcium measurement (mass/volume) 8.9 mg/dL 8.5-10.1 Serum or plasma total bilirubin measurement (mass/volu me) 0.2 mg/dL 0.1-1.0 Serum or plasma alkaline phosphatase sherine surement (enzymatic activity/volume) 67 U/L 40-136 Serum or plasma aspartate aminotransfera se measurement (enzymatic activity/volume) 42 U/L 5-34 Serum or plasma alanine aminotransferase measurement (enzymatic activity/volume) 43 U/L 0-55 Serum or plasma protein measurement (mass/volume) 6.8 g/dL 6.4-8.2 Serum or plasma albumin measurement (mass/volume) 4.0 g/dL 3.2-4.5 CALCIUM CORRECTED 8.9 mg/dL 8.5-10.1 Coronavirus SARS-CoV-2 SO 2018 - 0 13:39 Coronavirus Ab [Units/volume] in Serum Negative Negative Encounters ACCT No. Visit Date/Time Discharge Status Pt. Type Provider Facility Loc./Unit Complaint [id number] 09/29/2019 15:30:00 09/29/2019 23:59: 59 [facility] Out[facility] [id number] 10/14/2019 08:08:00 14:06:00 DIS Outpatient ALEX STILL DO [facility] PREOP BILIARY DYSKINESIA [id number] 10/04/2019 12:44:00 23:59:59 CLS Outpatient SELF FLOYD JONES [facility] CARD ABD PAIN [id number] 09/20/2019 15:53:00 23:59:59 CLS Outpatient SELF FLOYD JONES [facility] LAB ABDOMINAL PAIN [id number] 09/12/2019 10:59:00 23:59:59 CLS Outpatient SELF FLOYD JONES [facility] RAD ABD PAIN [id number] 07/13/2019 10:30:00 23:59:59 CLS Preadmit BREEZY VALLES MD [facility] CARD CHEST WALL PAIN,HTN [id number] 07/13/2019 09:40:00 23:59:59 CLS Outpatient BREEZY VALLES MD [facility] CARD CHEST WALL PAIN,HTN [id number] 08/05/2017 15:42:00 11:35:00 DIS Inpatient KYLE MONTERROSO MD [facility] 4TH LEFT TESTICULAR PAIN [id number] 08/05/2017 08:50:00 23:59:59 CLS Outpatient KYLE MONTERROSO MD [facility] RAD EPIDIDYMITIS [id number] 05/19/2017 05:59:00 12:10:00 DIS Outpatient KYLE MONTERROSO MD [facility] LEFT SPERMATIC VEIN LIG ATION [id number] 05/14/2017 14:00:00 018 14:51:00 DIS Outpatient KYLE MONTERROSO MD [facility] PREOP LEFT SPERMATIC VEIN LIG ATION [id number] 10/19/2019 09:05:00 P EN Preadmit ALEX STILL DO [facility] [address] BILIARY DYSKINESIA [id number] 12/14/2018 08:08:00 Document Registration [id number] 12/16/2018 06:07:00 Document Registration [id number] 12/14/2018 18:06:00 Document Registration [id number] 12/13/2018 08:56:05 12/13/2018 23:59: [address] [facility] Outpatient Samra Solo
[2019-10-19] MEDS ORDERED: LACTATED RINGERS 1,000 ML IV PRN (07:24)
[2019-10-19] MEDS ORDERED: CLINDAMYCIN 600 MG/50 ML IVPB 50 ML IV ONE (07:30)
[2019-10-19 07:48] LABS: BASOPHILS % (AUTO) 1 % (0-10); EOSINOPHILS # (AUTO) 0.4 10^3/uL (0.0-0.3); EOSINOPHILS % (AUTO) 5 % (0-10); HEMATOCRIT 42 % (40-54); HEMOGLOBIN 13.6 G/DL (13.3-17.7); LYMPHOCYTES # (AUTO) 1.7 X 10^3 (1.0-4.0); LYMPHOCYTES % (AUTO) 26 % (12-44); MEAN CORPUSCULAR HEMOGLOBIN 29 PG (25-34); MEAN CORPUSCULAR HGB CONC 32 G/DL (32-36); MEAN CORPUSCULAR VOLUME 89 FL (80-99); MEAN PLATELET VOLUME 10.6 FL (7.4-10.4); MONOCYTES # (AUTO) 0.6 X 10^3 (0.0-1.0); MONOCYTES % (AUTO) 9 % (0-12); NEUTROPHILS % (AUTO) 60 % (42-75); PLATELET COUNT 182 10^3/uL (130-400); RED CELL DISTRIBUTION WIDTH 13.7 % (10.0-14.5); WHITE BLOOD COUNT 6.7 10^3/uL (4.3-11.0)
--- NOTE | 2019-10-19 08:10 | Progress Note-Pre Operative ---
Pre-Operative Progress Note H&P Reviewed The H&P was reviewed, patient examined and no changes noted. Time Seen by Provider: 08:07 Date H&P Reviewed: Oct 19, 2019 Time H&P Reviewed: 08:08 Pre-Operative Diagnosis: Biliary Dyskinesia ALEX STILL DO Oct 19, 2019 08:10
[2019-10-19] MEDS ORDERED: MIDAZOLAM 2 MG/2 ML (VERSED) VIAL ONE (08:26)
[2019-10-19] MEDS ORDERED: fentaNYL INJECTION 100 MCG/2 ML AMP ONE (08:26)
[2019-10-19] MEDS ORDERED: ROCURONIUM 10 MG/ML 5 ML SYRINGE IV ONE (08:37)
[2019-10-19] MEDS ORDERED: proPOfol 200 MG/20 ML (DIPRIVAN) VIAL IV ONE (08:37)
[2019-10-19] MEDS ORDERED: LIDOCAINE PF 2% 5 ML (XYLOCAINE) VIAL ONE (08:37)
[2019-10-19] MEDS ORDERED: IOPAMIDOL 61% 30 ML (ISOVUE 300) VIAL ONE (08:39)
[2019-10-19] MEDS ORDERED: BUP/EPI 0.5% 1:200,000 (SENSORCAINE) 30 ML VIAL ONE (08:39)
[2019-10-19] MEDS ORDERED: SEVOFLURANE (ULTANE) 15 ML INHAL SOLN ONE (10:01)
[2019-10-19] MEDS ORDERED: GLYCOPYRROLATE 0.2 MG/ML (ROBINUL) 2 ML VIAL ONE (10:02)
[2019-10-19] MEDS ORDERED: ONDANSETRON 4 MG/2 ML (SDV) Z0FRAN ONE (10:02)
[2019-10-19] MEDS ORDERED: DEXAMETHASONE 10 MG/ML (DECADRON) 1 ML VIAL ONE (10:02)
[2019-10-19] MEDS ORDERED: NEOSTIGMINE 3 MG/3 ML VIAL ONE (10:02)
[2019-10-19] MEDS ORDERED: HYDROmorphone 2 MG/ML VIAL (DILAUDID) ONE ×2 (10:03→10:43)
--- NOTE | 2019-10-19 10:10 | Progress Note-Post Operative ---
Post-Operative Progess Note Surgeon (s)/Spindle Frame Carver (s) Surgeon ALEX STILL DO Spindle Frame Carver: Ana Paula Pre-Operative Diagnosis Biliary Dyskinesia Post-Operative Diagnosis same Procedure & Operative Findings Date of Procedure 10/19/19 Procedure Performed/Findings PROCEDURE: Laparoscopic cholecystectomy with intraoperative cholangiogram. COMPLICATIONS: None. PROCEDURE: The patient was taken to the operating suite and was prepped and draped in sterile fashion. A surgical pause was performed. Just under the ribs in the LUQ a 12 mm incision was made. Dissection was taken down to the fascia, which was then scored and grasped with a Sanju and the abdomen was then entered and a Medrano trocar was placed and secured. Pneumoperitoneum was achieved. Then had to go around all of the adhesions in the midline to get the right side of the patient. Able to visualize this and then placed a 5mm trochar place in the LUQ. Adhesions of bowel were taken down with sharp dissection with scissors and finally able to place another RUQ port, subxyphoid and midline above umbilicus port with Versa-step system; all done under direct visualization. Elected to leave the pneumoperitoneum coming through LUQ port. The gallbladder was then grasped and elevated. The cystic duct, and cystic artery were then dissected out. Clip was placed on the distal portion of the cystic duct which was then partially transected. An arrow catheter was inserted into the duct. The cholangiogram was then performed. No filing defects and contrast made its way into the duodenum. Catheter removed. Clips were placed on proximal portion of the cystic duct and then the duct was then transected. Clips were placed along the proximal and distal portion of the cystic artery which was then transected. Hook cautery was used to dissect the gallbladder from the gallbladder fossa achieving hemostasis. Then made a defect in the falciform ligament in order to get the endobag to the right side. The gallbladder was placed in the Endobag and removed through the 12 mm trocar site. The abdomen was then reinspected. Copious amounts of irrigation were used to irrigate the abdomen and there were no signs of active bleeding. Hemostasis had been achieved. The 12 mm fascial defect was then closed with an 0 Vicryl suture in a [id number]-[id number] fashion. The abdomen was then desufflated, the trocars were removed. The abdomen was then washed and dried. The skin was then closed using 4-0 Monocryl in a subcuticular fashion. The abdomen was washed and dried and Skin Affix was place over incisions. Patient tolerated the procedure well without any complications and was taken to the recovery room in stable condition. Dr. Goss assisted on this case helping to make incisions, close incisions, identify anatomy and hold anatomy out of the way. Anesthesia Type GET Estimated Blood Loss Estimated blood loss (mL): scant Specimens/Packing Specimens Removed GB and contents ALEX STILL DO Oct 19, 2019 10:10
[2019-10-19] MEDS ORDERED: HYDR-4226 PO (10:11)
--- NOTE | 2019-10-19 10:13 | Discharge Inst-Surgical ---
Discharge Inst-Surgical Depart Medication/Instructions New, Converted or Re-Newed RX: RX Given to Pt/Family Patient Instructions Follow up Appt: Make appointment for 1 week. [phone] Instructions: No lifting greater than 20 pounds. No strenuous activity. May shower in 24 hours, no tub bath or soaking. Use incentive spirometer at home as directed. No Smoking Skin/Wound Care: May remove bandages in am. You need to leave the Dermabond on incision it will fall off on it's own. Symptoms to Report: Appetite Changes, Extremity Discoloration, Numbness/Tingling, Swelling Increased, Bleeding Excessive, Eyesight Changes, Pain Increased, Urine Color Change, Constipation(Persistent), Fever over 101 degree F, Pain/Pressure in chest, Urinating Difficulty, Cough Up/Vomit Blood, Heart Beat Irreg/Pounding, Pain/Pressure in jaw, Cramps in feet or legs, Lightheadedness, Pain/Pressure in shoulder, Diarrhea(Persistent), Memory Changes Suddenly, Questions/Concerns, Weight gain consecutive days, Dizziness/Fainting, Nausea/Vomiting, Shortness of Breath, Weight gain over 2 pounds If questions or concerns contact your physician Or seek help at emergency department. Activity Activity as Tolerated: Yes Activity Instructions: Avoid Stress to Incision Driving Instructions: No Driving/Refer to Diet Discharge Diet: Avoid Fatty Foods, Low Fat/Low Cholesterol If Any Problems/Questions/Issu: Contact Your Physician, Go to Emergency Room Skin/Wound Care Infection Signs and Symptoms: Increased Redness, Foul Odor of Wound, Increased Drainage, Skin Itchy or Has a Rash, Increased Swelling, Temperature Above 101 F Wound Care Comment: heating pad to shoulder or neck tonight for pain Bathing Instructions: Shower Operative Area Clean and Dry: Keep Incision Clean/Dry Stitches/Charlie/Dermabond Dis: Dermabond Ice Pack: Ice On and Off Site (as needed for pain at incisions) ALEX STILL DO Oct 19, 2019 10:12
[2019-10-19] MEDS ORDERED: HYDROmorphone 2 MG/ML VIAL (DILAUDID) IV ONE (10:30)
[2019-10-19] MEDS ORDERED: ONDANSETRON 4 MG/2 ML (SDV) Z0FRAN IVP PRN (10:30)
--- NOTE | 2019-10-19 11:11 | Diagnostic Imaging Report ---
INDICATION: Fluoroscopy during intraoperative angiogram. Fluoroscopy was provided in OR during intraoperative cholangiogram. 9 seconds of fluoroscopic time was utilized. Images demonstrate injection of contrast into the cystic duct remnant. Intrahepatic and extra hepatic bile ducts are normal caliber. No filling defects are seen to suggest retained stone. IMPRESSION: Fluoroscopy during intraoperative cholangiogram. Dictated by: Dictated on workstation # [id number]
[2019-10-19] MEDS ORDERED: HYDROcodone/APAP 5 MG/325 MG (LORTAB) TAB PO ONE (12:15)
[2019-10-19] MEDS ORDERED: HYDROcodone/APAP 5 MG/325 MG (LORTAB) TAB ONE (12:17)
--- NOTE | 2019-10-19 13:48 | Anesthesia-General Post-Op ---
General Patient Condition Mental Status/LOC: Same as Preop Cardiovascular: Satisfactory Nausea/Vomiting: Absent Respiratory: Satisfactory Pain: Controlled Complications: Absent Post Op Complications Complications None Follow Up Care/Instructions Patient Instructions None needed. Anesthesia/Patient Condition Patient Condition Patient is doing well, no complaints, stable vital signs, no apparent adverse anesthesia problems. No complications reported per nursing. BARBARA ARNOLD CRNA Oct 19, 2019 13:48
== END 2019-10-19 13:25 | disposition home or self-care (01) ==
LOC: SDC 06:52
PROVIDERS: ATTEND Surgery
DX: K81.1 Chronic cholecystitis (principal); K82.8 Other specified diseases of gallbladder; I10 Essential (primary) hypertension; E78.2 Mixed hyperlipidemia; K21.9 Gastro-esophageal reflux disease without esophagitis; K52.9 Noninfective gastroenteritis and colitis, unspecified; Z87.442 Personal history of urinary calculi; G47.33 Obstructive sleep apnea (adult) (pediatric); Z88.0 Allergy status to penicillin; Z87.891 Personal history of nicotine dependence; Z79.899 Other long term (current) drug therapy
CPT/HCPCS: 36415; 76000; 85025; 87081

== ENCOUNTER → 2019-11-25 | Outpatient (REF) ==
[~2019-11-25] MED LIST changes: +HYDR-4226 PO; +MULT-567 PO; -MULT1TAB69 PO
--- NOTE | 2019-11-25 14:45 | Diagnostic Imaging Report ---
INDICATION: Positive TB skin test. TIME OF EXAM: 2:42 p.m. COMPARISON: There is no prior study available for comparison. FINDINGS: Heart size is normal. Lungs are clear. No infiltrates are detected. There is no effusion or pneumothorax. There are no findings to suggest tuberculosis. IMPRESSION: No acute cardiopulmonary process is detected. Dictated by: Dictated on workstation # [id number]
== END ==
LOC: OCC 14:25
PROVIDERS: ATTEND Nurse Practitioner Family
DX: R76.11 Nonspecific reaction to tuberculin skin test without active tuberculosis (principal)
CPT/HCPCS: 71046

== ENCOUNTER 2020-08-09 05:28 | Outpatient (RCR) | payer OTHER ==
[~2020-08-09] VITALS: Ht 182.9 cm; Wt 111.2 kg
== END 2020-08-09 09:42 | disposition home or self-care (01) ==
LOC: PREOP 05:28
PROVIDERS: ATTEND Surgery
DX: Z01.812 Encounter for preprocedural laboratory examination (principal); K21.9 Gastro-esophageal reflux disease without esophagitis; Z20.822 Contact with and (suspected) exposure to COVID-19
CPT/HCPCS: 87635

== ENCOUNTER 2020-08-13 11:01 | Day surgery (SDC) | payer OTHER ==
[~2020-08-13] VITALS: Ht 182.9 cm; Wt 111.2 kg
[2020-08-13] MEDS ORDERED: LACTATED RINGERS 1,000 ML IV STA (11:06)
[2020-08-13] MEDS ORDERED: HURRICAINE EXT TUBE (BENZOCAINE) XX PRN (11:15)
[2020-08-13] MEDS ORDERED: HURRICAINE EXT TUBE (BENZOCAINE) ONE (11:23)
[2020-08-13 11:37] VITALS: BP 133/90
--- NOTE | 2020-08-13 11:59 | Progress Note-Pre Operative ---
Pre-Operative Progress Note H&P Reviewed The H&P was reviewed, patient examined and no changes noted. Time Seen by Provider: 11:58 Date H&P Reviewed: Aug 13, 2020 Time H&P Reviewed: 11:58 Pre-Operative Diagnosis: RUQ pain, Gastritis, J-pouch ALEX STILL DO Aug 13, 2020 11:59
[2020-08-13] MEDS ORDERED: PROPOFOL INJECTION 50 ML IV ONE (12:23)
[2020-08-13] MEDS ORDERED: MIDAZOLAM 2 MG/2 ML (VERSED) VIAL ONE (12:24)
--- NOTE | 2020-08-13 12:51 | Progress Note-Post Operative ---
Post-Operative Progess Note Surgeon (s)/Tour Bus Driver/Guide (s) Surgeon ALEX STILL DO Tour Bus Driver/Guide: none Pre-Operative Diagnosis RUQ pain, Gastritis, J-pouch Post-Operative Diagnosis Gastritis J-pouch ulcer Procedure & Operative Findings Date of Procedure 08/13/20 Procedure Performed/Findings EGD with bx Flex sig with bx Anesthesia Type IV sedation by PROJECT MANAGEMENT ADVISOR Estimated Blood Loss Estimated blood loss (mL): scant Specimens/Packing Specimens Removed antral bx GE jxn bx J-pouch bx ALEX STILL DO Aug 13, 2020 12:51
[2020-08-13 12:52] VITALS: BP 120/65
--- NOTE | 2020-08-13 12:52 | Endoscopy Discharge Instruct ---
Endo Procedure/Findings Findings 1.: Gastritis 2.: Other Findings (J-Pouch Ulcer) Discharge Instructions - Activity: You might feel a little sleepy until tomorrow. This is due to the medicine you received to relax you. Until tomorrow, you should: NOT drive a car, operate machinery or power tools. NOT drink any alcoholic beverages. NOT make any important decisions or sign importortant papers. Do not return to work until tomorrow, unless otherwise instructed. Resume previous activities tomorrow. Diet: Start by taking liquids. If you tolerate liquids, advance to solid food. 1.: EGD in 3 years 2.: Other Recommendation (Flex sig in one year to check out J-pouch) Notify Physician - If you experience excessive bleeding, unusual abdominal pain, fever, or chest pain, contact your doctor immediately. ALEX STILL DO Aug 13, 2020 12:52
[2020-08-13 12:57] VITALS: BP 123/62
--- NOTE | 2020-08-13 12:57 | Anesthesia-General Post-Op ---
MAC Patient Condition Mental Status/LOC: Same as Preop Cardiovascular: Satisfactory Nausea/Vomiting: Absent Respiratory: Satisfactory Pain: Controlled Complications: Absent Post Op Complications Complications None Follow Up Care/Instructions Patient Instructions None needed. Anesthesiology Discharge Order Discharge Order Patient is doing well, no complaints, stable vital signs, no apparent adverse anesthesia problems. No complications reported per nursing. AILYN JARAMILLO CRNA Aug 13, 2020 12:57
[2020-08-13 13:00] VITALS: BP 123/62
[2020-08-13 13:30] VITALS: BP 130/84
[2020-08-13 13:40] VITALS: BP 130/84
--- NOTE | 2020-08-13 21:22 | OPERATIVE REPORT ---
DATE OF SERVICE: 08/13/2020 PREOPERATIVE DIAGNOSES: Right upper quadrant pain, gastritis, history of J-pouch. POSTOPERATIVE DIAGNOSES: Gastritis, J-pouch ulcer, and minimal internal hemorrhoids. PROCEDURES: 1. EGD with biopsy. 2. Flex sig with biopsy. SURGEON: Petros Brady DO MOLD INSERT CHANGER: None. ANESTHESIA: IV sedation by the SPACE OPERATIONS. SPECIMEN: Antral biopsy, body of stomach biopsy, GE junction biopsy as well as the J-pouch ulcer biopsy. BLOOD LOSS: Scant. FLUIDS: Per anesthesia. POSTOPERATIVE CONDITION: Stable. INDICATION FOR PROCEDURE: The patient is a 45-year-old male who had some right upper quadrant pain, possible gastritis and he has a history of J-pouch, need this checked. FINDINGS: The patient had some gastritis and he had a J-pouch ulcer as well as some internal hemorrhoids. Biopsies performed. Pictures taken. PROCEDURE NOTE: After informed consent was obtained, the patient was brought to the endoscopy suite, placed in bed in left lateral decubitus position. He was administered IV sedation by the SPACE OPERATIONS who then monitored his vitals the entire time, heart rate, blood pressure and pulse ox, started with the EGD, placing scope down the mouth through the esophagus into the stomach. Upon entering the stomach, noted some mild gastritis in the antrum, took a picture, pushed into the duodenum. Duodenum looked fine, able to get actually the second or third portion and could see the ampulla of Vater, took a picture. Pulled the scope back and did a biopsy of the antrum. Retroflexed the scope, did a biopsy of the body of stomach, did not appear to be a hiatal hernia. Pulled the scope into the GE junction, did another biopsy. Suctioned all the air out of the stomach and then pulled the scope up the esophagus and out the mouth. We went down below and used the same EGD scope to check out to do a flex sig to look at the pouch. The patient had a total colectomy for ulcerative colitis and then, the J-pouch saw a large ulcer, took a picture of this and then did a biopsy here. I could see the anastomosis from the 2 sides of the small intestine, took a picture of this, noted some very minimal internal hemorrhoids as well as pulling out, took a picture of this. The patient tolerated the procedure, recovered in endoscopy suite. Job ID: [id number] DocumentID: [id number] Dictated Date: 08/13/2020 15:22:07 Printing Press Machine Operator Date: 08/13/2020 21:22:00 Dictated By: PETROS BRADY DO
== END 2020-08-13 13:40 | disposition home or self-care (01) ==
LOC: ENDO 11:01
PROVIDERS: ATTEND Surgery
DX: K29.50 Unspecified chronic gastritis without bleeding (principal); K21.00 Gastro-esophageal reflux disease with esophagitis, without bleeding; K64.8 Other hemorrhoids; I10 Essential (primary) hypertension; G47.33 Obstructive sleep apnea (adult) (pediatric); E78.2 Mixed hyperlipidemia; E66.9 Obesity, unspecified; Z68.33 Body mass index [BMI] 33.0-33.9, adult; Z79.899 Other long term (current) drug therapy; Z88.0 Allergy status to penicillin; Z88.2 Allergy status to sulfonamides; Z88.5 Allergy status to narcotic agent; Z88.1 Allergy status to other antibiotic agents

== ENCOUNTER 2020-10-23 13:34 | Emergency (ER) | payer OTHER ==
[~2020-10-23] VITALS: Ht 182.8 cm; Wt 111.0 kg
[2020-10-23] MEDS ORDERED: ASPIRIN 81 MG CHEW (CHILDREN'S ASA) PO ONE (13:45)
[2020-10-23 13:51] LABS: BASOPHILS # (AUTO) 0.1 10^3/uL (0.0-0.1); BASOPHILS % (AUTO) 1 % (0-10); EOSINOPHILS # (AUTO) 0.5 10^3/uL (0.0-0.3); EOSINOPHILS % (AUTO) 6 % (0-10); HEMATOCRIT 39 % (40-54); HEMOGLOBIN 11.3 g/dL (13.3-17.7); LYMPHOCYTES # (AUTO) 1.2 10^3/uL (1.0-4.0); LYMPHOCYTES % (AUTO) 14 % (12-44); MEAN CORPUSCULAR HEMOGLOBIN 23 pg (25-34); MEAN CORPUSCULAR HGB CONC 29 g/dL (32-36); MEAN CORPUSCULAR VOLUME 77 fL (80-99); MEAN PLATELET VOLUME 9.8 fL (9.0-12.2); MONOCYTES # (AUTO) 0.5 10^3/uL (0.0-1.0); MONOCYTES % (AUTO) 7 % (0-12); NEUTROPHILS # (AUTO) 6.1 10^3/uL (1.8-7.8); NEUTROPHILS % (AUTO) 72 % (42-75); PLATELET COUNT 223 10^3/uL (130-400); WHITE BLOOD COUNT 8.4 10^3/uL (4.3-11.0)
--- NOTE | 2020-10-23 14:01 | ED Chest Pain ---
General Chief Complaint: Chest Pain Stated Complaint: CP,SOB Nursing Triage Note: AMB TO ED WITH C/O R SIDE CHEST PAIN FOR 1 MONTH TODAY FEELING SOA WITH. AND PAIN RADATION INTO R SIDE OF NECK. POSITIVE FOR COVID IN APR. Nursing Sepsis Screen: No Definite Risk Source: patient Exam Limitations: no limitations History of Present Illness Date Seen by Provider: Oct 23, 2020 Time Seen by Provider: 13:59 Initial Comments To ER with reports of intermittent right-sided chest pain for 1 month. The pain happens about a few times a week. He has some associated shortness of breath. It seems to originate in the right flank/right side of the abdomen and occasionally radiates to his groin or occasionally radiates upwards towards his neck. When it comes about its very intense. Currently he rates it at 3 out of 10 but it was much more intense just a few minutes ago when this started. Timing/Duration: intermittent Severity/Quality: moderate, severe Location: central Radiation: no radiation Activities at Onset: none ASA po BOX TRUCK DRIVER: No NTG SL BOX TRUCK DRIVER: No Associated Symptoms: shortness of breath Allergies and Home Medications Allergies Coded Allergies: Penicillins (Verified Allergy, Mild, HIVES, 08/13/20) fentanyl (Verified Allergy, Mild, itching, 08/13/20) sulfamethoxazole (Verified Allergy, Mild, vomiting, 08/13/20) trimethoprim (Verified Allergy, Mild, vomiting, 08/13/20) Home Medications Ascorbic Acid 500 Mg Tablet.er, 500 MG PO DAILY, (Reported) Cetirizine HCl 10 Mg Tablet, 10 MG PO DAILY, (Reported) Ciprofloxacin HCl 250 Mg Tablet, 250 MG PO BID Prescribed by: LISSY BARRETT on 10/23/20 0446 Loperamide HCl 2 Mg Tablet, 2 MG PO UD PRN for DIARRHEA, (Reported) Losartan Potassium 50 Mg Tablet, 50 MG PO DAILY, (Reported) Methylprednisolone 4 Mg Tab.ds.pk, 4 MG PO UD PER DOSE PACK INSTRUCTIONS Prescribed by: LISSY BARRETT on 10/23/20 0592 Multivitamin 1 Each Tablet, 1 TAB PO DAILY, (Reported) Patient Home Medication List Home Medication List Reviewed: Yes Review of Systems Review of Systems Constitutional: see HPI EENTM: No Symptoms Reported Respiratory: No Symptoms Reported Cardiovascular: No Symptoms Reported Gastrointestinal: See HPI, Abdominal Pain Genitourinary: No Symptoms Reported Musculoskeletal: no symptoms reported Skin: no symptoms reported Psychiatric/Neurological: No Symptoms Reported Endocrine: No Symptoms Reported Hematologic/Lymphatic: No Symptoms Reported Past Ydhrzll-Apocvc-Zgvscg Hx Patient Social History Former Smoker, Quit: Oct 12, 2007 2nd Hand Smoke Exposure: Yes Recent Infectious Disease Expo: No Recent Hopitalizations: No Immunizations Up To Date Tetanus Booster (TDap): Unknown Date of Influenza Vaccine: Feb 17, 2020 Seasonal Allergies Seasonal Allergies: Yes Past Medical History Surgeries: Yes (COLON RESECTION WITH COLOSTOMY THEN REVERSAL, varicous vein ) Gallbladder, Testicular Respiratory: Yes (MILD SLEEP APNEA) Currently Using CPAP: No Currently Using BIPAP: No Cardiac: Yes Hypertension Neurological: No Sexually Transmitted Disease: No HIV/AIDS: No Genitourinary: Yes Kidney Stones Gastrointestinal: Yes Colitis, Gastroesophageal Reflux, Chronic Diarrhea, Gall Bladder Disease, Irritable Bowel Musculoskeletal: No Endocrine: No HEENT: Yes (GLASSES) Loss of Vision: Denies Hearing Impairment: Denies Cancer: No Psychosocial: No Integumentary: No Blood Disorders: No Adverse Reaction/Blood Tranf: No (N/A) Family Medical History Cervical cancer 19 MOTHER Diabetes mellitus 19 MOTHER FH: cirrhosis 19 FATHER No Pertinent Family Hx Physical Exam Vital Signs Vital Signs - First Documented 10/23/20 13:48 Temp 36.9 Pulse 88 Resp 18 B/P (MAP) 166/112 (130) Pulse Ox 97 O2 Delivery Room Air Capillary Refill : Less Than 3 Seconds Height, Weight, BMI Height: 6'0.00" Weight: 234lbs. 4.0oz. 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 Progress/Results/Core Measures Results/Orders Lab Results Laboratory Tests Test 10/23/20 13:43 10/23/20 14:00 10/23/20 14:50 Range/Units White Blood Count 8.4 4.3-11.0 10^3/uL Red Blood Count 5.03 4.30-5.52 10^6/uL Hemoglobin 11.3 L 13.3-17.7 g/dL Hematocrit 39 L 40-54 % Mean Corpuscular Volume 77 L 80-99 fL Mean Corpuscular Hemoglobin 23 L 25-34 pg Mean Corpuscular Hemoglobin Concent 29 L 32-36 g/dL Red Cell Distribution Width 15.3 H 10.0-14.5 % Platelet Count 223 130-400 10^3/uL Mean Platelet Volume 9.8 9.0-12.2 fL Immature Granulocyte % (Auto) 0 % Neutrophils (%) (Auto) 72 42-75 % Lymphocytes (%) (Auto) 14 12-44 % Monocytes (%) (Auto) 7 0-12 % Eosinophils (%) (Auto) 6 0-10 % Basophils (%) (Auto) 1 0-10 % Neutrophils # (Auto) 6.1 1.8-7.8 10^3/uL Lymphocytes # (Auto) 1.2 1.0-4.0 10^3/uL Monocytes # (Auto) 0.5 0.0-1.0 10^3/uL Eosinophils # (Auto) 0.5 H 0.0-0.3 10^3/uL Basophils # (Auto) 0.1 0.0-0.1 10^3/uL Immature Granulocyte # (Auto) 0.0 0.0-0.1 10^3/uL Sodium Level 142 135-145 MMOL/L Potassium Level 3.9 3.6-5.0 MMOL/L Chloride Level 104 98-107 MMOL/L Carbon Dioxide Level 28 21-32 MMOL/L Anion Gap 10 5-14 MMOL/L Blood Urea Nitrogen 12 7-18 MG/DL Creatinine 1.10 0.60-1.30 MG/DL Estimat Glomerular Filtration Rate > 60 BUN/Creatinine Ratio 11 Glucose Level 108 H 70-105 MG/DL Calcium Level 9.2 8.5-10.1 MG/DL Corrected Calcium 9.1 8.5-10.1 MG/DL Magnesium Level 2.1 1.6-2.4 MG/DL Total Bilirubin 0.5 0.1-1.0 MG/DL Aspartate Amino Transf (AST/SGOT) 74 H 5-34 U/L Alanine Aminotransferase (ALT/SGPT) 82 H 0-55 U/L Alkaline Phosphatase 116 40-136 U/L Myoglobin 37.3 10.0-92.0 NG/ML Troponin I < 0.028 <0.028 NG/ML B-Type Natriuretic Peptide < 10.0 <100.0 PG/ML Total Protein 7.3 6.4-8.2 GM/DL Albumin 4.1 3.2-4.5 GM/DL Prothrombin Time 13.3 12.2-14.7 SEC INR Comment 1.0 0.8-1.4 Activated Partial Thromboplast Time 25 24-35 SEC D-Dimer < 0.27 0.00-0.49 UG/ML Urine Color YELLOW Urine Clarity CLEAR Urine pH 6.0 5-9 Urine Specific [place] 1.015 L 1.016-1.022 Urine Protein NEGATIVE NEGATIVE Urine Glucose (UA) NEGATIVE NEGATIVE Urine Ketones NEGATIVE NEGATIVE Urine Nitrite NEGATIVE NEGATIVE Urine Bilirubin NEGATIVE NEGATIVE Urine Urobilinogen 0.2 < = 1.0 MG/DL Urine Leukocyte Esterase NEGATIVE NEGATIVE Urine RBC (Auto) NEGATIVE NEGATIVE Urine RBC NONE /HPF Urine WBC RARE /HPF Urine Crystals NONE /LPF Urine Bacteria NEGATIVE /HPF Urine Casts NONE /LPF Urine Mucus NEGATIVE /LPF Urine Culture Indicated NO My Orders Orders - LISSY BARRETT PARTS PULLER Cbc With Automated Diff (10/23/20 13:43) Magnesium (10/23/20 13:43) Chest 1 View, Ap/Pa Only (10/23/20 13:43) Ekg Tracing (10/23/20 13:43) Comprehensive Metabolic Panel (10/23/20 13:43) Myoglobin Serum (10/23/20 13:43) Protime With Inr (10/23/20 13:43) Partial Thromboplastin Time (10/23/20 13:43) O2 (10/23/20 13:43) Monitor-Rhythm Ecg Trace Only (10/23/20 13:43) Ed Iv/Invasive Line Start (10/23/20 13:43) BNP (10/23/20 13:43) Fibrin Degradation Products (10/23/20 13:43) Troponin I (10/23/20 13:43) Aspirin Chewable Tablet (Baby Aspirin Ch (10/23/20 13:45) Ua Culture If Indicated (10/23/20 14:31) Ct Abd/Pelvis Wo(Kidney Stone) (10/23/20 15:15) Vital Signs/I&O 10/23/20 10/23/20 13:48 15:56 Temp 36.9 Pulse 88 87 Resp 18 18 B/P (MAP) 166/112 (130) 125/72 Pulse Ox 97 98 O2 Delivery Room Air Blood Pressure Mean: 130 Departure Communication (Admissions) Family Conversation EKG normal sinus. [id number] pattern. Normal intervals, no ectopy He reports that he has had this pain pretty constant in the right side is occasionally worse. He saw And had a scope done and was told there was a little pouchitis. We will try a Medrol Dosepak and some Cipro to see if this helps. Impression Primary Impression: Right sided abdominal pain Disposition: HOME, SELF-CARE Condition: Stable Departure-Patient Inst. Decision time for Depature: 15:53 Referrals: SELFFLOYD MD (PCP/Family) Primary Care Physician Scripts Methylprednisolone (Methylprednisolone Dose Pack) 4 Mg Tab.ds.pk 4 MG PO UD for 6 Days, #21 PKG PER DOSE PACK INSTRUCTIONS Prov: LISSY BARRETT APRN 10/23/20 Ciprofloxacin HCl (Ciprofloxacin HCl) 250 Mg Tablet 250 MG PO BID, #10 TAB Prov: LISSY BARRETT APRN 10/23/20 Copy Copies To 1: ELAINE HOWE PETER J PARTS PULLER Oct 23, 2020 14:00
[2020-10-23 14:11] LABS: ALBUMIN 4.1 GM/DL (3.2-4.5); CHLORIDE 104 MMOL/L (98-107); POTASSIUM 3.9 MMOL/L (3.6-5.0); SODIUM 142 MMOL/L (135-145)
[2020-10-23 14:13] LABS: CALCIUM 9.2 MG/DL (8.5-10.1)
[2020-10-23 14:14] LABS: GLUCOSE 108 MG/DL (70-105); TOTAL PROTEIN 7.3 GM/DL (6.4-8.2)
--- NOTE | 2020-10-23 14:14 | Diagnostic Imaging Report ---
INDICATION: Chest pain. TIME OF EXAM: 1:47 PM. COMPARISON: Correlation is made with the prior chest from 11/25/2019. FINDINGS: The heart size is normal. The pulmonary vascularity is unremarkable. The lungs are clear. No infiltrate, effusion, or pneumothorax is detected. IMPRESSION: No acute cardiopulmonary process is detected. Dictated by: Dictated on workstation # [id number]
[2020-10-23 14:15] LABS: CARBON DIOXIDE 28 MMOL/L (21-32)
[2020-10-23 14:16] LABS: BILIRUBIN,TOTAL 0.5 MG/DL (0.1-1.0)
[2020-10-23 14:17] LABS: ALKALINE PHOSPHATASE 116 U/L (40-136); GFR ESTIMATED > 60
[2020-10-23 14:18] LABS: BUN/CREATININE RATIO 11
[2020-10-23 14:19] LABS: PROTHROMBIN TIME PATIENT 13.3 SEC (12.2-14.7)
[2020-10-23 14:20] LABS: ALANINE AMINOTRANSFERASE 82 U/L (0-55); MAGNESIUM 2.1 MG/DL (1.6-2.4)
[2020-10-23 14:57] LABS: BILIRUBIN,URINE NEGATIVE (NEGATIVE); CLARITY,URINE CLEAR; COLOR,URINE YELLOW; GLUCOSE, URINE (UA) NEGATIVE (NEGATIVE); KETONES,URINE NEGATIVE (NEGATIVE); LEUKOCYTE ESTERASE ,URINE NEGATIVE (NEGATIVE); NITRITE,URINE NEGATIVE (NEGATIVE); PROTEIN,URINE NEGATIVE (NEGATIVE)
[2020-10-23 15:08] LABS: BACTERIA,URINE NEGATIVE /HPF; WBC,URINE RARE /HPF
[2020-10-23 15:56] VITALS: BP 125/72
--- NOTE | 2020-10-23 16:02 | Diagnostic Imaging Report ---
PROCEDURE: CT urinary tract, rule out kidney stone. TECHNIQUE: Multiple contiguous axial images were obtained through the abdomen and pelvis without the use of intravenous contrast. Auto Exposure Controls were utilized during the CT exam to meet ALARA standards for radiation dose reduction. INDICATION: Right-sided flank pain for two months. COMPARISON: 09/12/2019. FINDINGS: The lung bases are clear. The heart is normal in size. There is no pericardial effusion. The liver demonstrates no focal lesions. The spleen appears normal. The pancreas is normal. The adrenal glands are normal. Cholecystectomy clips are noted. The right kidney demonstrates no calculi and no hydronephrosis. The left kidney demonstrates no hydronephrosis as well, although there is a nonobstructing calculus in the inferior kidney measuring 6 mm. There is no hydroureter bilaterally. The urinary bladder is decompressed. There are postsurgical changes with anastomotic sutures from prior colectomy. No free fluid is seen. No free air is seen. There are a couple of mildly prominent loops of small bowel in the lower midline abdomen (image 32 series 601), likely sequela from prior surgery or possibly a mild focal ileus. There is no transition point seen. No acute osseous abnormality is seen. IMPRESSION: 1. Nonobstructing calculus in the inferior left kidney. No obstructing calculi or hydronephrosis. 2. Postsurgical changes in the abdomen. Two mildly prominent loops of small bowel in the midabdomen are likely sequela from prior surgery or mild focal ileus. Dictated by: Dictated on workstation # [id number]
[2020-10-23] MEDS ORDERED: CIPR250T3 PO (16:08)
[2020-10-23] MEDS ORDERED: METH4TAB10 PO (16:08)
== END 2020-10-23 16:04 | disposition home or self-care (01) ==
LOC: EDUNIT# 13:34 → ER 13:35
DX: R10.9 Unspecified abdominal pain (principal); I10 Essential (primary) hypertension; Z77.22 Contact with and (suspected) exposure to environmental tobacco smoke (acute) (chronic); Z79.52 Long term (current) use of systemic steroids
CPT/HCPCS: 36415; 71045; 74176; 80053; 81000; 83735; 83874; 83880; 84484; 85025; 85379; 85610; 85730; 93005; 93041

== ENCOUNTER 2020-12-18 08:29 | Outpatient (RCR) | payer OTHER ==
[~2020-12-18 08:29] MED LIST changes: +CIPR250T3 PO; +METH4TAB10 PO
[2020-12-18 08:59] LABS: HEMATOCRIT 38 % (40-54); HEMOGLOBIN 10.8 g/dL (13.3-17.7); MEAN CORPUSCULAR HEMOGLOBIN 22 pg (25-34); MEAN CORPUSCULAR HGB CONC 29 g/dL (32-36); MEAN CORPUSCULAR VOLUME 77 fL (80-99); MEAN PLATELET VOLUME 10.7 fL (9.0-12.2); PLATELET COUNT 223 10^3/uL (130-400); WHITE BLOOD COUNT 7.8 10^3/uL (4.3-11.0)
[2020-12-18 09:18] LABS: ALBUMIN 3.8 GM/DL (3.2-4.5); BILIRUBIN,TOTAL 0.3 MG/DL (0.1-1.0); CALCIUM 8.8 MG/DL (8.5-10.1); CREATININE SERUM 0.92 MG/DL (0.60-1.30); TOTAL PROTEIN 6.8 GM/DL (6.4-8.2)
[2020-12-18 09:27] LABS: ERYTHROCYTE SEDIMENTATION RATE 8 MM/HR (0-15)
[2021-03-12] MEDS ORDERED: MECL-105 PO (17:34)
[2021-03-12] MEDS ORDERED: ONDA4TAB11 PO (17:35)
== END 2021-03-18 | disposition home or self-care (01) ==
LOC: LAB 08:29 → EDSTATUS 08:29
PROVIDERS: ATTEND Internal Medicine
DX: D64.9 Anemia, unspecified (principal); R19.7 Diarrhea, unspecified; R10.9 Unspecified abdominal pain; Z79.899 Other long term (current) drug therapy
CPT/HCPCS: 36415; 80053; 82274; 82728; 83036; 83540; 84443; 85027; 85652; 86141; 87015; 87045; 87046; 87324; 87328; 87329; 87449; 87899; 89055

== ENCOUNTER 2020-12-28 09:44 | Outpatient (CLI) | payer OTHER ==
[2020-12-28 09:50] VITALS: BP 126/87
[2020-12-28] MEDS ORDERED: IRON DEXTRAN 25 MG/NS 6.25 ML TOTAL VOLUME IV ONE ×3 (10:00)
[2020-12-28] MEDS ORDERED: IRON DEXTRAN 1,000 MG/NS 250 ML IVPB IV ONE ×2 (10:00)
== END 2020-12-28 12:25 | disposition home or self-care (01) ==
LOC: SDC 09:44
PROVIDERS: ATTEND Internal Medicine
DX: E61.1 Iron deficiency (principal)
CPT/HCPCS: 96365

== ENCOUNTER → 2021-01-15 | Outpatient (CLI) | payer OTHER ==
[2021-01-15 13:09] LABS: BASOPHILS # (AUTO) 0.1 10^3/uL (0.0-0.1); BASOPHILS % (AUTO) 1 % (0-10); EOSINOPHILS # (AUTO) 0.3 10^3/uL (0.0-0.3); EOSINOPHILS % (AUTO) 4 % (0-10); HEMATOCRIT 43 % (40-54); HEMOGLOBIN 12.7 g/dL (13.3-17.7); LYMPHOCYTES % (AUTO) 31 % (12-44); MEAN CORPUSCULAR HEMOGLOBIN 24 pg (25-34); MEAN CORPUSCULAR HGB CONC 30 g/dL (32-36); MEAN CORPUSCULAR VOLUME 81 fL (80-99); MEAN PLATELET VOLUME 10.7 fL (9.0-12.2); MONOCYTES # (AUTO) 0.4 10^3/uL (0.0-1.0); MONOCYTES % (AUTO) 6 % (0-12); NEUTROPHILS # (AUTO) 3.8 10^3/uL (1.8-7.8); NEUTROPHILS % (AUTO) 58 % (42-75); PLATELET COUNT 215 10^3/uL (130-400); WHITE BLOOD COUNT 6.5 10^3/uL (4.3-11.0)
== END ==
LOC: LAB 08:49
PROVIDERS: ATTEND Internal Medicine
DX: E61.1 Iron deficiency (principal)
CPT/HCPCS: 36415; 82728; 83540; 83550; 85025

== ENCOUNTER → 2021-03-11 | Outpatient (CLI) | payer OTHER ==
[~2021-03-11] MED LIST changes: +MECL-105 PO; +ONDA4TAB11 PO
== END ==
LOC: LABNPT 14:39
PROVIDERS: ATTEND Nurse Practitioner Family
DX: Z01.812 Encounter for preprocedural laboratory examination (principal); Z20.822 Contact with and (suspected) exposure to COVID-19
CPT/HCPCS: 87636

== ENCOUNTER 2021-03-12 14:33 | Emergency (ER) | payer OTHER ==
[~2021-03-12] VITALS: Ht 182 cm; Wt 111.0 kg
[~2021-03-12 14:33] MED LIST changes: -MECL-105 PO; -ONDA4TAB11 PO
--- OUTSIDE RECORDS SUMMARY | 2021-03-12 14:38 | XMS REPORT | Clinical Summary ---
Author Author [facility] Organization [facility] Address Unknown Phone Unavailable Care Team Providers Care Physiologist Name Role Phone Self, Dieter JONES PCP Allergies Not on File Medications Not on file Active Problems Not on file Social History Date Tobacco Use Types Packs/Day Years Used Never Assessed Sex Assigned at Date Recorded Not on file Last Filed Vital Signs Reading Time Taken Comments Vital Sign - - Blood Pressure - - Pulse - - Temperature - - Respiratory Rate - - Oxygen Saturation - - Inhaled Oxygen Concentration 111.1 kg (245 lb) 07/27/2018 3:00 PM CDT Weight - - Height - - Body Mass Index Plan of Treatment Health Maintenance Due Date Last Done Comments Td/Tdap# 1976 COVID-19 Vaccine (1) 1988 Influenza Vaccine (#1) 2021 02/22/2015, 03/25/2013 Pneumococcal Vaccine: Aged Out No longer eligib le based on patient's age to Pediatrics (0 to 5 Years) complete this topic and At-Risk Patients (6 to 64 Years) Results Not on filefrom Last 3 Months Insurance Type Payer Benefit Subscriber ID Effective Phone Address Plan / Dates Group [facility] [id number] 2018-P [phone] [id number] [place] [address] MEDICAID MANAGED CARE [employer] [id number] 2018-P [address] [place] [id number] [facility] [phone] Advance Directives For more information, please contact: [phone] Patient Patent Drafter Explanation Type Date Recorded Power of Electroless Plater Health Care Directive Advance Directives 03/26/2018 2:19 PM and Living Will Care Teams Start Date End Date Physiologist Relationship Specialty 03/26/18 Dieter White MD PCP - General Family [address] [place] [address] [place] [address]
--- OUTSIDE RECORDS SUMMARY | 2021-03-12 14:39 | XMS REPORT | Clinical Summary ---
Author Author [facility] Organization [facility] Address Unknown Phone Unavailable Care Team Providers Care Grease Monkey Name Role Phone Janee Mcfarland NEONATAL SOCIAL WORKER-WASHER HAND Unavailable Yehuda Stroud MD Unavailable Zeyad Tolentino MD Unavailable Unavailable Iveth Arboleda NEONATAL SOCIAL WORKER-WASHER HAND Unavailable Dieter White MD PCP Source Comments Some departments are not documenting in the electronic medical record. If you d o not see the information that you expected, contact Release of Information in [facility] Information Management department at [phone] for further assistan ce in locating additional records.[facility] Allergies Comments Active Allergy Reactions Severity Noted Date Sulfamethoxazole-Trimetho NAUSEA AND Low 06/12 prim VOMITING Sensitivity Fentanyl RASH Medium 07/04/2015 Allergy recorded in SMS: PCN~Reactions: HIVES Penicillins 09/29/2005 Medications End Date Status Medication Sig Dispensed Refills Start Date Active CETIRIZINE HCL (ZYRTEC Take 10 mg by 0 PO) mouth. Active MULTIVITAMIN PO Take by 0 mouth daily. Active DOCOSAHEXANOIC ACID/EPA Take by 0 (FISH OIL PO) mouth. Active ascorbate calcium Take by 0 (VITAMIN C PO) mouth daily. Active ibuprofen (MOTRIN) 600 mg Take 1 tablet 90 tablet 3 tabletIndications: by mouth 8 Orchalgia every 8 hours. Take with food Active mesalamine (CANASA) 1,000 Insert or 30 1 mg supp Apply one suppository 0 suppository to rectal area as directed at bedtime daily. Active loperamide (IMODIUM A-D) Take one 90 capsule 1 0 2 mg capsule capsule by 0 mouth four times daily as needed for Diarrhea. Take 2 capsules by mouth initially, followed by 1 capsule by mouth after each loose stool up to a maximum of 8 tablets in 24 hours. Active Fhvbenpd0-Fzvzqn7-Awtez Take 1 each 30 packet 11 therm. (VSL#3 DS) 900 by mouth 0 billion cell daily. pwpkIndications: Indications: pouchitis pouchitis Active Problems Problem Noted Date Ulcerative colitis 05/17/2012 Overview: Formatting of this note might be differ ent from the original. 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 03/2012 Diarrhea 05/17/2012 Surgical History Surgery Date Site/Laterality Comments HX COLECTOMY w/ rectum intact, reattach of J HX APPENDECTOMY Medical History Medical History Date Comments UC (ulcerative colitis) (HCC) Family History Medical History Relation Name Comments Cancer Mother cervical cancer Cervical Cancer Mother Inflammatory Bowel Mother Disease Relation Name Status Comments Mother Alive Social History Date Tobacco Use Types Packs/Day Years Used Former Smoker Smokeless Tobacco: Never Used Comments: quit smoking >5 years ago as o f 03/2012 Comments Alcohol Use Standard Drinks/Week Yes 3 (1 standard drink = 0.6 o z pure alcohol) Sex Assigned at Date Recorded Male 08/08/2019 7:31 PM CDT Last Filed Vital Signs Reading Time Taken Comments Vital Sign 134/94 09/03/2017 11:04 AM CDT Blood Pressure 101 09/03/2017 11:04 AM CDT Pulse 36.7 C (98.1 F) 09/03/2017 11:04 AM CDT Temperature 12 09/03/2017 11:04 AM CDT Respiratory Rate 94% 03/23/2012 9:49 AM BUSINESS ENTERPRISE OFFICER Oxygen Saturation - - Inhaled Oxygen Concentration 110 kg (242 lb 6.4 oz) 09/03/2017 11:04 AM CDT Weight 182.9 cm (6') 09/03/2017 11:04 AM CDT per pt Height 32.88 09/03/2017 11:04 AM CDT Body Mass Index Plan of Treatment Health Maintenance Due Date Last Done Comments HIV SCREENING 02/28/1991 DTAP/TDAP VACCINES (1 - 02/28/1994 Tdap) HEPATITIS C SCREENING 02/28/1994 PHYSICAL (COMPREHENSIVE) 02/28/1994 EXAM INFLUENZA VACCINE 12/09/2020 Results Not on filefrom Last 3 Months Insurance Type Payer Benefit Subscriber ID Effective Phone Address Plan / Dates Group PPO BCBS [employer] [id number] 2017-P OUT OF resent STATE [phone] Advance Directives Patient House Parent Explanation Type Date Recorded Advance 08/16/2014 3:36 PM Directive/DPOA
--- OUTSIDE RECORDS SUMMARY | 2021-03-12 14:39 | XMS REPORT | Clinical Summary ---
Author Author [facility] Organization [facility] Address Unknown Phone Unavailable Care Team Providers Care Corporate Compliance Officer Name Role Phone Self, Dieter Barger MD PP Allergies Comments Active Allergy Reactions Severity Noted Date Sulfamethoxazole-Trimetho GI 06/21/2018 prim Intolerance Clindamycin GI 06/21/2018 Intolerance Penicillins Hives 06/21/2018 Medications End Date Status Medication Sig Dispensed Refills Start Date Active cetirizine (ZyrTEC) 10 MG Take 10 mg by 0 tablet mouth daily. Active fluticasone (FLONASE) 50 1 spray into 0 mcg/actuation nasal spray each nostril daily. Active pseudoephedrine (SUDAFED) Take 60 mg by 0 60 MG tablet mouth every 4 (four) hours as needed for congestion. Active Problems Not on file Social History Date Tobacco Use Types Packs/Day Years Used Never Smoker Smokeless Tobacco: Never Used Sex Assigned at Date Recorded Not on file Last Filed Vital Signs Reading Time Taken Comments Vital Sign 128/80 06/21/2018 4:13 PM SENIOR PRINCIPAL Blood Pressure 94 06/21/2018 3:56 PM SENIOR PRINCIPAL Pulse 36.9 C (98.4 F) 06/21/2018 3:56 PM SENIOR PRINCIPAL Temperature 17 06/21/2018 3:56 PM SENIOR PRINCIPAL Respiratory Rate 96% 06/21/2018 3:56 PM SENIOR PRINCIPAL Oxygen Saturation - - Inhaled Oxygen Concentration 111 kg (245 lb) 06/21/2018 3:56 PM SENIOR PRINCIPAL Weight 182.9 cm (6') 06/21/2018 3:56 PM SENIOR PRINCIPAL Height 33.23 06/21/2018 3:56 PM SENIOR PRINCIPAL Body Mass Index Plan of Treatment Health Maintenance Due Date Last Done Comments Colonoscopy 2016 Results Not on filefrom Last 3 Months Insurance Type Payer Benefit Subscriber ID Effective Phone Address Plan / Dates Group [place]BS [id number] 2018-P [facility] Care Teams Start Date End Date Corporate Compliance Officer Relationship Specialty 06/21/18 Self, Dieter Barger MD PCP - General [facility] Medicine
[2021-03-12] MEDS ORDERED: METOCLOPRAMIDE INJ 10 MG/2 ML (REGLAN) IVP STA (14:44)
[2021-03-12] MEDS ORDERED: diphenhydrAMINE 50 MG/ML INJ (BENADRYL) IVP STA (14:44)
[2021-03-12] MEDS ORDERED: KETOROLAC 30 MG/ML VIAL IVP STA (14:44)
[2021-03-12] MEDS ORDERED: NS IV 1000 ML 1,000 ML IV STA (14:44)
--- NOTE | 2021-03-12 14:53 | ED General ---
General Chief Complaint: Abdominal/GI Problems Stated Complaint: VOMITING; HEADACHE Source of Information: Patient, Spouse History of Present Illness Date Seen by Provider: Mar 12, 2021 Time Seen by Provider: 14:35 Initial Comments 46 yo male presenting by POV with complaints of severe headache, light sensitivity, nausea/vomiting. This started after he got home this afternoon from having a colonoscopy at [facility] with Dr. Irwin. He reports they gave him Propofol for the procedure. he has a history of ulcerative colitis and has had multiple prior scopes and procedures under sedation and has never had symptoms like this. he had a mild headache when he got home so he took tylenol with Cipro and Flagyl they wanted him to take for ulcers they found on the scope. He has had recurrent episodes of vomiting since this and so his drove him here to the ED. They tried calling the GI clinic and Dr. Irwin but have been unable to reach anyone. Timing/Duration: 1-3 Hours Severity: Severe Associated Systoms: No Chest Pain, No Cough, No Diaphoresis, No Fever/Chills; Headaches, Nausea/Vomiting; No Seizure, No Shortness of Air, No Syncope, No Weakness Allergies and Home Medications Allergies Coded Allergies: Penicillins (Verified Allergy, Mild, HIVES, 08/13/20) fentanyl (Verified Allergy, Mild, itching, 08/13/20) sulfamethoxazole (Verified Allergy, Mild, vomiting, 08/13/20) trimethoprim (Verified Allergy, Mild, vomiting, 08/13/20) Patient Home Medication List Home Medication List Reviewed: Yes Ascorbic Acid (Vitamin C) 500 Mg Tablet.er, 500 MG PO DAILY, (Reported) Entered as Reported by: USHA VALDOVINOS on 05/14/17 1430 Cetirizine HCl (Cetirizine HCl) 10 Mg Tablet, 10 MG PO DAILY, (Reported) Entered as Reported by: USHA VALDOVINOS on 05/14/17 1430 Ciprofloxacin HCl (Ciprofloxacin HCl) 250 Mg Tablet, 250 MG PO BID Prescribed by: LISSY BARRETT on 10/23/20 1608 Loperamide HCl (Imodium A-D) 2 Mg Tablet, 2 MG PO UD PRN for DIARRHEA, (Reported) Entered as Reported by: VIVIAN MAJANO on 08/06/17 1153 Losartan Potassium (Losartan Potassium) 50 Mg Tablet, 50 MG PO DAILY, (Reported) Entered as Reported by: MORA HUDSON on 10/12/19 1527 Meclizine HCl (Verticalm) 25 Mg Tablet, 25 MG PO TID PRN for DIZZINESS Prescribed by: JOÃO MEEHAN on 03/12/21 1734 Methylprednisolone (Methylprednisolone Dose Pack) 4 Mg Tab.ds.pk, 4 MG PO UD Prescribed by: LISSY BARRETT on 10/23/20 1608 Multivitamin (Multivitamins) 1 Each Tablet, 1 TAB PO DAILY, (Reported) Entered as Reported by: USHA VALDOVINOS on 05/14/17 1430 Ondansetron (Ondansetron Odt) 4 Mg Tab.rapdis, 4 MG PO Q6H PRN for NAUSEA/VOMITING Prescribed by: JOÃO MEEHAN on 03/12/21 1735 Review of Systems Review of Systems Constitutional: No chills; dizziness (feels like room is spinning); No fever EENTM: no symptoms reported Respiratory: no symptoms reported Cardiovascular: no symptoms reported Gastrointestinal: see HPI, nausea, vomiting Genitourinary: no symptoms reported Musculoskeletal: no symptoms reported Skin: no symptoms reported Psychiatric/Neurological: Headache (generalized headache) Past Lofzign-Udmrlu-Fqcrop Hx Immunizations Up To Date Tetanus Booster (TDap): Unknown Seasonal Allergies Seasonal Allergies: Yes Past Medical History Surgery/Hospitalization HX: Colectomy for Ulcerative Colitis Surgeries: Yes (COLON RESECTION WITH COLOSTOMY THEN REVERSAL, varicous vein ) Abdominal (colectomy for ulcerative colitis), Gallbladder, Testicular Respiratory: Yes (MILD SLEEP APNEA) Currently Using CPAP: No Currently Using BIPAP: No Cardiac: Yes Hypertension Neurological: No Sexually Transmitted Disease: No HIV/AIDS: No Genitourinary: Yes Kidney Stones Gastrointestinal: Yes Colitis, Gastroesophageal Reflux, Chronic Diarrhea, Gall Bladder Disease, Irritable Bowel Musculoskeletal: No Endocrine: No HEENT: Yes (GLASSES) Loss of Vision: Denies Hearing Impairment: Denies Cancer: No Psychosocial: No Integumentary: No Blood Disorders: No Adverse Reaction/Blood Tranf: No (N/A) Family Medical History Cervical cancer 19 MOTHER Diabetes mellitus 19 MOTHER FH: cirrhosis 19 FATHER No Pertinent Family Hx Physical Exam Vital Signs Vital Signs - First Documented 03/12/21 03/12/21 14:57 18:01 Temp 35.5 Pulse 105 Resp 20 B/P (MAP) 125/76 Pulse Ox 100 O2 Delivery Room Air Capillary Refill : Height, Weight, BMI Height: 6'0.00" Weight: 234lbs. 4.0oz. 106.435657qg; 33.00 BMI Method:Stated General Appearance: Anxious, Moderate Distress, Obese HEENT: PERRL/EOMI, Photophobia Neck: Full Range of Motion, Normal Inspection, Non Tender, Supple Respiratory: Chest Non Tender, Lungs Clear, Normal Breath Sounds Cardiovascular: Regular Rate, Rhythm, Normal Peripheral Pulses Gastrointestinal: No Pulsatile Mass, Non Tender, Soft, Abnormal Bowel Sounds (hypoactive) Extremity: Normal Capillary Refill, No Pedal Edema Neurologic/Psychiatric: Alert, Oriented x3, Other (anxious) Skin: Normal Color, Warm/Dry Progress/Results/Core Measures Suspected Sepsis SIRS Temperature: Pulse: Respiratory Rate: Laboratory Tests 03/12/21 14:39: White Blood Count 6.8 Blood Pressure / Mean: Laboratory Tests 03/12/21 14:39: Creatinine 0.98, Platelet Count 197, Total Bilirubin 0.3 Results/Orders Lab Results Laboratory Tests Test 03/12/21 14:39 Range/Units White Blood Count 6.8 4.3-11.0 10^3/uL Red Blood Count 5.41 4.30-5.52 10^6/uL Hemoglobin 14.6 13.3-17.7 g/dL Hematocrit 46 40-54 % Mean Corpuscular Volume 85 80-99 fL Mean Corpuscular Hemoglobin 27 25-34 pg Mean Corpuscular Hemoglobin Concent 32 32-36 g/dL Red Cell Distribution Width 17.9 H 10.0-14.5 % Platelet Count 197 130-400 10^3/uL Mean Platelet Volume 10.4 9.0-12.2 fL Neutrophils (%) (Auto) 48 42-75 % Lymphocytes (%) (Auto) 39 12-44 % Monocytes (%) (Auto) 8 0-12 % Eosinophils (%) (Auto) 6 0-10 % Basophils (%) (Auto) 1 0-10 % Neutrophils # (Auto) 3.3 1.8-7.8 X 10^3 Lymphocytes # (Auto) 2.6 1.0-4.0 X 10^3 Monocytes # (Auto) 0.5 0.0-1.0 X 10^3 Eosinophils # (Auto) 0.4 H 0.0-0.3 10^3/uL Basophils # (Auto) 0.0 0.0-0.1 10^3/uL Immature Granulocyte # (Auto) 0.0 0.0-0.1 10^3/uL Sodium Level 142 135-145 MMOL/L Potassium Level 4.0 3.6-5.0 MMOL/L Chloride Level 104 98-107 MMOL/L Carbon Dioxide Level 29 21-32 MMOL/L Anion Gap 9 5-14 MMOL/L Blood Urea Nitrogen 9 7-18 MG/DL Creatinine 0.98 0.60-1.30 MG/DL Estimat Glomerular Filtration Rate 83 BUN/Creatinine Ratio 9 Glucose Level 105 70-105 MG/DL Calcium Level 9.2 8.5-10.1 MG/DL Corrected Calcium 8.8 8.5-10.1 MG/DL Total Bilirubin 0.3 0.1-1.0 MG/DL Aspartate Amino Transf (AST/SGOT) 68 H 5-34 U/L Alanine Aminotransferase (ALT/SGPT) 140 H 0-55 U/L Alkaline Phosphatase 112 40-136 U/L Total Protein 7.1 6.4-8.2 GM/DL Albumin 4.5 3.2-4.5 GM/DL Lipase 31 8-78 U/L My Orders Orders - JOÃO MEEHAN MD Comprehensive Metabolic Panel (03/12/21 14:44) Lipase (03/12/21 14:44) Ed Iv/Invasive Line Start (03/12/21 14:44) Cbc With Automated Diff (03/12/21 14:44) Ns Iv 1000 Ml (Sodium Chloride 0.9%) (03/12/21 14:44) Ketorolac Injection (Toradol Injection) (03/12/21 14:44) Metoclopramide Injection (Reglan Injecti (03/12/21 14:44) Diphenhydramine Injection (Benadryl Inje (03/12/21 14:44) Ct Head Wo (03/12/21 14:45) Obtain Records From (Order) (03/12/21 14:46) Meclizine Tablet (Antivert Tablet) (03/12/21 16:49) Lorazepam Injection (Ativan Injection) (03/12/21 16:49) Vital Signs/I&O 03/12/21 03/12/21 14:57 18:01 Temp 35.5 36.0 Pulse 105 79 Resp 20 B/P (MAP) 125/76 Pulse Ox 100 98 O2 Delivery Room Air 03/13/21 00:00 Intake Total 1000 ml Balance 1000 ml Capillary Refill : Progress Note #1: Progress Note With him having new symptoms and not usually reacting like this with prior scopes will obtain labs and CT head. Give 1 L NS for IVF bolus, Reglan 10 mg IV for nausea, Benadryl 50 mg IV for nausea and to help him relax, Toradol 30 mg IV for pain. Will try to see if can get any records from [facility] about his scope and meds he was given in case they gave him something other than Propofol. Progress Note #2: Progress Note Improved nausea and headache after medicines given and IVF infusing. He did have 1 more episode in ED but otherwise has been doing well. Labs do not show any acute significant abnormality to account for his symptoms. Progress Note #3: Progress Note CT head negative for acute process. Updated pt and spouse. Dr. Irwin also called back from [facility] and verbally advised that only Propofol was given during scope. Pt did have a different bowel prep than usual for him but other medicines have been ones he has had before. He had not taken Cipro and Flagyl together before so was wondering it that caused symptoms for him. With him having some continued dizziness/vertigo symptoms will give Meclizine and po challenge. Progress Note #4: Progress Note Pt tolerated po challenge and meclizine. Advised to get Meclizine from pharmacy. Check back with clinic if having continued or worsening symptoms. Diagnostic Imaging Diagonstic Imaging: CT Plain Films/CT/US/NM/MRI: head Comments [facility] [place], [place] NAME: ERIN TRIANA Yi MED REC#: [id number] PT STATUS: REG ER : 1975 PHYSICIAN: JOÃO MEEHAN MD ADMIT DATE: 03/12/21/ER FS Signed Date of Exam:03/12/21 CT HEAD WO PROCEDURE: CT head without contrast. TECHNIQUE: Multiple contiguous axial images were obtained through the brain without the use of intravenous contrast. Auto Exposure Controls were utilized during the CT exam to meet ALARA standards for radiation dose reduction. INDICATION: 46-year-old male with severe headache, nausea, vomiting, and photophobia. Patient is status post colonoscopy. COMPARISONS: None. FINDINGS: The midline structures are not displaced. Lateral, third and fourth ventricles are normal in size, shape, and anatomic position. There is no mass, mass effect, hydrocephalus, or hemorrhage. Ryan-white differentiation is normal. There is no sulcal effacement. There are no abnormal extra-axial fluid collections or hemorrhage. Basilar cisterns appear normal. IMPRESSION: Unremarkable nonenhanced CT brain. Dictated by: Dictated on workstation # [id number] Dict: 03/12/21 1513 Trans: 03/12/21 1623 [id number] [id number] Interpreted by: ZARI LABOY MD Electronically signed by: ZARI LABOY MD 03/12/219 Reviewed: Reviewed by Me Departure Impression Primary Impression: Intractable nausea and vomiting Additional Impressions: Generalized headache Vertigo Disposition: 01 HOME, SELF-CARE Condition: Stable Departure-Patient Inst. Decision time for Depature: 17:45 Referrals: ELAINE HOWE DO (PCP/Family) Primary Care Physician Patient Instructions: Nausea and Vomiting, Adult ED, Vertigo ED, Dizziness, Adult ED, Headache, Adult ED Add. Discharge Instructions: Keep sipping on fluids and try to stay well hydrated Use the Meclizine (Antivert) to help with dizziness Take Ondansetron (Zofran) for nausea if needed. Try your antibiotics by an hour or more and take it with a snack or some food to help see if that improves your tolerating of the antibiotics. All discharge instructions reviewed with patient and/or family. Voiced understanding. Scripts Ondansetron (Ondansetron Odt) 4 Mg Tab.rapdis 4 MG PO Q6H PRN for NAUSEA/VOMITING for 3 Days, #12 TAB 0 Refills Prov: JOÃO MEEHAN MD 03/12/21 Meclizine HCl (Verticalm) 25 Mg Tablet 25 MG PO TID PRN for DIZZINESS for 10 Days, #30 TAB 0 Refills Prov: JOÃO MEEHAN MD 03/12/21 JOÃO MEEHAN MD Mar 12, 2021 14:53
[2021-03-12 15:07] LABS: HEMOGLOBIN 14.6 g/dL (13.3-17.7); MEAN CORPUSCULAR HEMOGLOBIN 27 pg (25-34); WHITE BLOOD COUNT 6.8 10^3/uL (4.3-11.0)
[2021-03-12 15:16] LABS: HEMATOCRIT 46 % (40-54)
[2021-03-12 15:17] LABS: BASOPHILS % (AUTO) 1 % (0-10); EOSINOPHILS # (AUTO) 0.4 10^3/uL (0.0-0.3); EOSINOPHILS % (AUTO) 6 % (0-10); LYMPHOCYTES # (AUTO) 2.6 X 10^3 (1.0-4.0); LYMPHOCYTES % (AUTO) 39 % (12-44); MEAN CORPUSCULAR HGB CONC 32 g/dL (32-36); MEAN CORPUSCULAR VOLUME 85 fL (80-99); MEAN PLATELET VOLUME 10.4 fL (9.0-12.2); MONOCYTES # (AUTO) 0.5 X 10^3 (0.0-1.0); MONOCYTES % (AUTO) 8 % (0-12); NEUTROPHILS # (AUTO) 3.3 X 10^3 (1.8-7.8); NEUTROPHILS % (AUTO) 48 % (42-75); PLATELET COUNT 197 10^3/uL (130-400)
[2021-03-12 15:19] LABS: ALBUMIN 4.5 GM/DL (3.2-4.5); BILIRUBIN,TOTAL 0.3 MG/DL (0.1-1.0); CALCIUM 9.2 MG/DL (8.5-10.1); CREATININE SERUM 0.98 MG/DL (0.60-1.30); TOTAL PROTEIN 7.1 GM/DL (6.4-8.2)
--- NOTE | 2021-03-12 15:19 | Diagnostic Imaging Report ---
PROCEDURE: CT head without contrast. TECHNIQUE: Multiple contiguous axial images were obtained through the brain without the use of intravenous contrast. Auto Exposure Controls were utilized during the CT exam to meet ALARA standards for radiation dose reduction. INDICATION: 46-year-old male with severe headache, nausea, vomiting, and photophobia. Patient is status post colonoscopy. COMPARISONS: None. FINDINGS: The midline structures are not displaced. Lateral, third and fourth ventricles are normal in size, shape, and anatomic position. There is no mass, mass effect, hydrocephalus, or hemorrhage. Ryan-white differentiation is normal. There is no sulcal effacement. There are no abnormal extra-axial fluid collections or hemorrhage. Basilar cisterns appear normal. IMPRESSION: Unremarkable nonenhanced CT brain. Dictated by: Dictated on workstation # [id number]
[2021-03-12] MEDS ORDERED: LORazepam INJ 2 MG/ML (ATIVAN) VIAL IVP STA (16:49)
[2021-03-12] MEDS ORDERED: MECLIZINE 25 MG (ANTIVERT) TAB PO STA (16:49)
[2021-03-12] MEDS ORDERED: MECL-105 PO (17:34)
[2021-03-12] MEDS ORDERED: ONDA4TAB11 PO (17:35)
[2021-03-12 18:01] VITALS: BP 125/76
== END 2021-03-12 18:05 | disposition home or self-care (01) ==
LOC: EDUNIT# 14:33 → ER FS 14:35
DX: R51.9 Headache, unspecified (principal); R42 Dizziness and giddiness; I10 Essential (primary) hypertension; E66.9 Obesity, unspecified; Z68.33 Body mass index [BMI] 33.0-33.9, adult
CPT/HCPCS: 36415; 70450; 80053; 83690; 85025

== ENCOUNTER → 2021-06-19 | Outpatient (CLI) | payer OTHER ==
[~2021-06-19] MED LIST changes: -LEVO500T80 PO; +LEVO500T81 PO; +MECL-105 PO; +ONDA4TAB11 PO
[2021-06-19 15:44] LABS: BASOPHILS % (AUTO) 1 % (0-10); EOSINOPHILS # (AUTO) 0.4 10^3/uL (0.0-0.3); EOSINOPHILS % (AUTO) 6 % (0-10); HEMATOCRIT 46 % (40-54); HEMOGLOBIN 14.9 g/dL (13.3-17.7); LYMPHOCYTES # (AUTO) 2.1 X 10^3 (1.0-4.0); LYMPHOCYTES % (AUTO) 35 % (12-44); MEAN CORPUSCULAR HEMOGLOBIN 29 pg (25-34); MEAN CORPUSCULAR HGB CONC 33 g/dL (32-36); MEAN CORPUSCULAR VOLUME 89 fL (80-99); MEAN PLATELET VOLUME 10.2 fL (9.0-12.2); MONOCYTES # (AUTO) 0.5 X 10^3 (0.0-1.0); MONOCYTES % (AUTO) 8 % (0-12); NEUTROPHILS # (AUTO) 3.1 X 10^3 (1.8-7.8); NEUTROPHILS % (AUTO) 50 % (42-75); PLATELET COUNT 173 10^3/uL (130-400); WHITE BLOOD COUNT 6.1 10^3/uL (4.3-11.0)
[2021-06-19 16:03] LABS: ERYTHROCYTE SEDIMENTATION RATE 8 MM/HR (0-15)
[2021-06-19 16:11] LABS: ALBUMIN 3.9 GM/DL (3.2-4.5); BILIRUBIN,TOTAL 0.5 MG/DL (0.1-1.0); CALCIUM 9.1 MG/DL (8.5-10.1); CREATININE SERUM 0.92 MG/DL (0.60-1.30); POTASSIUM 3.6 MMOL/L (3.6-5.0); TOTAL PROTEIN 7.1 GM/DL (6.4-8.2)
== END ==
LOC: LAB 15:13
PROVIDERS: ATTEND Internal Medicine
DX: Z00.00 Encounter for general adult medical examination without abnormal findings (principal); D64.9 Anemia, unspecified; E53.8 Deficiency of other specified B group vitamins; K52.9 Noninfective gastroenteritis and colitis, unspecified; R70.0 Elevated erythrocyte sedimentation rate; R79.82 Elevated C-reactive protein (CRP)
CPT/HCPCS: 36415; 80053; 82607; 82728; 82977; 83540; 83550; 84443; 85025; 85652; 86141

== ENCOUNTER → 2021-07-28 | Outpatient (CLI) | payer OTHER ==
[~2021-07-28] MED LIST changes: +OXYC1TAB87 PO
--- NOTE | 2021-07-28 13:51 | Diagnostic Imaging Report ---
PROCEDURE: CT urinary tract, rule out kidney stone. TECHNIQUE: Multiple contiguous axial images were obtained through the abdomen and pelvis without the use of intravenous contrast. Auto Exposure Controls were utilized during the CT exam to meet ALARA standards for radiation dose reduction. INDICATION: 46-year-old male, right-sided flank pain with history of stones. CORRELATION STUDY: 10/23/2020 FINDINGS: LOWER THORAX: Clear. LIVER: Unremarkable. GALLBLADDER: Cholecystectomy. No significant bile duct dilatation. SPLEEN: Unremarkable. PANCREAS: Unremarkable. ADRENAL GLANDS: Unremarkable. KIDNEYS: 5 mm stone inferior pole left kidney. Right kidney unremarkable. No ureteric calcification or obstruction. ABDOMINAL AORTA: Unremarkable, nonaneurysmal. GASTROINTESTINAL TRACT: Postoperative changes of the gastrointestinal tract. Anastomotic suture lines may be owing to prior colectomy. The appendix is not visualized, likely absent. No abnormally dilated loops of bowel findings to suggest obstruction. No abdominal ascites and/or free air. URINARY BLADDER: Unremarkable. REPRODUCTIVE: Unremarkable. OSSEOUS STRUCTURES: Nonacute pars articularis on the left L5 level. OTHER: None. IMPRESSION: 1. Nonobstructing left renal stone. No ureteric calcification or obstructive uropathy. 2. Surgical change of the gastrointestinal tract, likely colectomy. No bowel obstruction. Dictated by: Dictated on workstation # [id number]
== END ==
LOC: RAD 13:11
PROVIDERS: ATTEND Nurse Practitioner Family
DX: N20.0 Calculus of kidney (principal)
CPT/HCPCS: 74176

== ENCOUNTER 2021-07-30 19:21 | Emergency (ER) | payer OTHER ==
[~2021-07-30] VITALS: Ht 182 cm; Wt 111.0 kg
[~2021-07-30 19:21] MED LIST changes: -OXYC1TAB87 PO
[2021-07-30 19:38] VITALS: BP 142/90
[2021-07-30] MEDS ORDERED: morphine INJ 10 MG/ML 1ML (SYR OR VIAL) IVP STA (19:42)
[2021-07-30] MEDS ORDERED: ONDANSETRON 4 MG/2 ML (SDV) Z0FRAN IVP ONE (19:45)
[2021-07-30] MEDS ORDERED: NS IV 1000 ML 1,000 ML IV SCH (19:45)
--- NOTE | 2021-07-30 20:11 | ED Back Pain ---
General Chief Complaint: Back Problems Stated Complaint: L FLANK PAIN Nursing Triage Note: PT REPORTS KNOWN KIDNEY STONE 4MM IN SIZE ON LEFT SIDE. REPORTS INCREASED LEFT FLANK PAIN TODAY THAT IS NOT CONTROLLED WITH HIS ORAL PAIN MEDICATION AT HOME Source of Information: Patient Exam Limitations: No Limitations History of Present Illness Date Seen by Provider: Jul 30, 2021 Time Seen by Provider: 20:00 Initial Comments Patient is a 46-year-old male with known 4 mm stone on his left side. Patient reports stone migration with increased pain poorly controlled with hydrocodone Flomax and Zofran. Pain is moderate intermittent and dull waxes and wanes. Reports nausea without vomiting. No fever chills, sweats. Denies decreased urinary output. History of J-pouch and NSAID tolerance. No other acute symptoms or complaints Timing/Duration: 5-6 Days, Other Severity: Moderate Pain/Injury Location: Other Radiation: Other Method of Injury: Other Modifying Factors: Improves With Other Associated Symptoms: other Allergies and Home Medications Allergies Coded Allergies: Penicillins (Verified Allergy, Mild, HIVES, 08/13/20) fentanyl (Verified Allergy, Mild, itching, 08/13/20) sulfamethoxazole (Verified Allergy, Mild, vomiting, 08/13/20) trimethoprim (Verified Allergy, Mild, vomiting, 08/13/20) Patient Home Medication List Home Medication List Reviewed: Yes Ascorbic Acid (Vitamin C) 500 Mg Tablet.er, 500 MG PO DAILY, (Reported) Entered as Reported by: USHA VALDOVINOS on 05/14/17 1430 Cetirizine HCl (Cetirizine HCl) 10 Mg Tablet, 10 MG PO DAILY, (Reported) Entered as Reported by: USHA VALDOVINOS on 05/14/17 1430 Ciprofloxacin HCl (Ciprofloxacin HCl) 250 Mg Tablet, 250 MG PO BID Prescribed by: LISSY BARRETT on 10/23/20 1608 Loperamide HCl (Imodium A-D) 2 Mg Tablet, 2 MG PO UD PRN for DIARRHEA, (Reported) Entered as Reported by: VIVIAN MAJANO on 08/06/17 1153 Losartan Potassium (Losartan Potassium) 50 Mg Tablet, 50 MG PO DAILY, (Reported) Entered as Reported by: MORA HUDSON on 10/12/19 1527 Meclizine HCl (Verticalm) 25 Mg Tablet, 25 MG PO TID PRN for DIZZINESS Prescribed by: JOÃO MEEHAN on 03/12/21 1734 Methylprednisolone (Methylprednisolone Dose Pack) 4 Mg Tab.ds.pk, 4 MG PO UD Prescribed by: LISSY BARRETT on 10/23/20 1608 Multivitamin (Multivitamins) 1 Each Tablet, 1 TAB PO DAILY, (Reported) Entered as Reported by: USHA VALDOVINOS on 05/14/17 1430 Ondansetron (Ondansetron Odt) 4 Mg Tab.rapdis, 4 MG PO Q6H PRN for NAUSEA/VOMITING Prescribed by: JOÃO MEEHAN on 03/12/21 1735 Oxycodone HCl/Acetaminophen (Percocet 5-325 mg Tablet) 1 Each Tablet, 1-2 TAB PO Q4H Prescribed by: HARRIS ONEILL on 07/30/212015 Review of Systems Constitutional: see HPI EENTM: see HPI Respiratory: see HPI Cardiovascular: see HPI Gastrointestinal: see HPI Genitourinary: see HPI Musculoskeletal: see HPI Skin: see HPI Past Aufezev-Utkqwa-Lmwdqd Hx Patient Social History Tobacco Use?: Yes Substance use?: No Alcohol Use?: Yes Alcohol type: Beer Alcohol Frequency: Once in a while Pt feels they are or have been: No Immunizations Up To Date Tetanus Booster (TDap): Unknown Influenza Vaccine Up-to-Date: Yes; Up-to-Date First/Initial COVID19 Vaccinat: unkown date Second COVID19 Vaccination Jorge: unknown date Seasonal Allergies Seasonal Allergies: Yes Past Medical History Surgery/Hospitalization HX: gallbladder colon removal with colostomy colostomy reversal Surgeries: Yes (COLON RESECTION WITH COLOSTOMY THEN REVERSAL, varicous vein ) Abdominal, Gallbladder, Testicular Respiratory: Yes (MILD SLEEP APNEA) Currently Using CPAP: No Currently Using BIPAP: No Cardiac: Yes Hypertension Neurological: No Sexually Transmitted Disease: No HIV/AIDS: No Genitourinary: Yes Kidney Stones Gastrointestinal: Yes Colitis, Gastroesophageal Reflux, Chronic Diarrhea, Gall Bladder Disease, Irritable Bowel Musculoskeletal: No Endocrine: No HEENT: Yes (GLASSES) Loss of Vision: Denies Hearing Impairment: Denies Cancer: No Psychosocial: No Integumentary: No Blood Disorders: No Adverse Reaction/Blood Tranf: No (N/A) Family Medical History Cervical cancer 19 MOTHER Diabetes mellitus 19 MOTHER FH: cirrhosis 19 FATHER No Pertinent Family Hx Physical Exam Vital Signs Vital Signs - First Documented 07/30/21 19:38 Temp 37.0 Pulse 88 Resp 18 B/P (MAP) 142/90 (107) Pulse Ox 95 O2 Delivery Room Air Capillary Refill : Height, Weight, BMI Height: 6'0.00" Weight: 234lbs. 4.0oz. 106.818957kl; 33.00 BMI Method:Stated General Appearance: No Apparent Distress, WD/WN, Anxious, Mild Distress HEENT: PERRL/EOMI Neck: Supple Cardiovascular: Regular Rate, Rhythm Respiratory: Chest Non Tender, Lungs Clear Gastrointestinal: Normal Bowel Sounds, Non Tender, Soft Back: Normal Inspection, No CVA Tenderness Neurologic/Psychiatric: Alert, Oriented x3 Skin: Normal Color Progress/Results/Core Measures Results/Orders Lab Results Laboratory Tests Test 07/30/21 20:25 Range/Units Urine Color YELLOW Urine Clarity CLEAR Urine pH 6.0 5-9 Urine Specific [place] 1.015 L 1.016-1.022 Urine Protein NEGATIVE NEGATIVE Urine Glucose (UA) NEGATIVE NEGATIVE Urine Ketones NEGATIVE NEGATIVE Urine Nitrite NEGATIVE NEGATIVE Urine Bilirubin NEGATIVE NEGATIVE Urine Urobilinogen 0.2 < = 1.0 MG/DL Urine Leukocyte Esterase NEGATIVE NEGATIVE Urine RBC (Auto) 2+ H NEGATIVE Urine RBC 0-2 /HPF Urine WBC RARE /HPF Urine Squamous Epithelial Cells NONE /HPF Urine Crystals NONE /LPF Urine Bacteria NEGATIVE /HPF Urine Casts NONE /LPF Urine Mucus NEGATIVE /LPF Urine Culture Indicated NO My Orders Orders - HARRIS ONEILL DO Morphine Injection (Morphine Injection (07/30/21 19:42) Ondansetron Injection (Zofran Injectio (07/30/21 19:45) Ns Iv 1000 Ml (Sodium Chloride 0.9%) (07/30/21 19:45) Urinalysis (07/30/21 19:43) Abdomen (Kub) 1 View (07/30/21 19:43) Medications Given in ED Current Medications Medications Dose Ordered Sig/Siobhan Route Start Time Stop Time Status Last Admin Dose Admin Ondansetron HCl 4 mg ONCE ONCE IVP 07/30/21 19:45 07/30/21 19:46 DC 07/30/21 19:49 4 MG Vital Signs/I&O 07/30/21 19:38 Temp 37.0 Pulse 88 Resp 18 B/P (MAP) 142/90 (107) Pulse Ox 95 O2 Delivery Room Air Blood Pressure Mean: 107 Departure Communication (Admissions) KUB: Lab and imaging reviewed. Patient's pain improved with treatment. Recommendations are continue watchful waiting supportive care with PCP follow-up with urology referral. Patient resting comfortably at time of discharge. Return precautions reviewed. Patient verbalizes understanding and agreement discharge instructions prior to departure. Impression Primary Impression: Acute left flank pain Additional Impression: Ureteral stone Disposition: HOME, SELF-CARE Condition: Stable Departure-Patient Inst. Decision time for Depature: 20:12 Referrals: ELAINE HOWE DO (PCP/Family) Primary Care Physician Patient Instructions: Flank Pain, Kidney Stones (DC) Add. Discharge Instructions: You were evaluated in the emergency department for left flank pain. Your sympt oms are consistent with known kidney stone disease involving the left ureter. Please discontinue hydrocodone in the morning and take Percocet as directed. Follow-up with your PCP and urologist in 3 to 5 days for reevaluation. Return to the ED if new or worsening symptoms peer All discharge instructions reviewed with patient and/or family. Voiced understanding. Scripts Oxycodone HCl/Acetaminophen (Percocet 5-325 mg Tablet) 1 Each Tablet 1-2 TAB PO Q4H for PAIN-MODERATE MDD 6 TABS for 7 Days, #20 TAB Prov: HARRIS ONEILL DO 07/30/21 HARRIS ONEILL DO Jul 30, 2021 20:11
--- NOTE | 2021-07-30 20:11 | Diagnostic Imaging Report ---
EXAMINATION: Abdomen 1 view HISTORY: Left flank pain COMPARISON: None available. FINDINGS: A 2 mm calcification projects at the expected location of the distal left ureter. No dilated bowel or free air. IMPRESSION: 1. Calcification projecting over the expected location of the distal left ureter may represent a stone. Dictated by: Dictated on workstation # [id number]
[2021-07-30] MEDS ORDERED: OXYC1TAB87 PO (20:16)
[2021-07-30 20:29] LABS: BILIRUBIN,URINE NEGATIVE (NEGATIVE); CLARITY,URINE CLEAR; COLOR,URINE YELLOW; GLUCOSE, URINE (UA) NEGATIVE (NEGATIVE); KETONES,URINE NEGATIVE (NEGATIVE); LEUKOCYTE ESTERASE ,URINE NEGATIVE (NEGATIVE); NITRITE,URINE NEGATIVE (NEGATIVE); PROTEIN,URINE NEGATIVE (NEGATIVE)
[2021-07-30 20:34] LABS: BACTERIA,URINE NEGATIVE /HPF; RBC,URINE 0-2 /HPF; WBC,URINE RARE /HPF
== END 2021-07-30 21:13 | disposition home or self-care (01) ==
LOC: EDUNIT# 19:21 → ER FS 19:22
DX: N20.1 Calculus of ureter (principal); Z72.0 Tobacco use
CPT/HCPCS: 74018; 81000; 96374; 96375

== ENCOUNTER → 2021-08-06 | Outpatient (CLI) | payer OTHER ==
[~2021-08-06] MED LIST changes: +OXYC1TAB87 PO
--- NOTE | 2021-08-06 13:40 | Diagnostic Imaging Report ---
INDICATION: Left-sided kidney stone. TIME OF EXAM: 12:54 PM. COMPARISON: Correlation is made with the prior radiographs from 07/30/[address] study from 07/28/2021. FINDINGS: The previously noted calculus in the expected location of the distal left ureter is no longer appreciated and has likely passed. No definite radiopaque urinary tract calculi are seen on today's study. There are postop changes to the GI tract. The bowel gas pattern is unremarkable. IMPRESSION: The previously noted distal left ureteric calculus is no longer visualized and has likely passed. Dictated by: Dictated on workstation # [id number]
== END ==
LOC: RAD 12:26
PROVIDERS: ATTEND Urology
DX: N20.1 Calculus of ureter (principal)
CPT/HCPCS: 74018

== ENCOUNTER → 2021-08-12 | Outpatient (CLI) | payer OTHER ==
--- NOTE | 2021-08-12 16:01 | Diagnostic Imaging Report ---
INDICATION: Nephrolithiasis. EXAMINATION: KUB at 1:45 PM. FINDINGS: The bowel gas pattern is normal. There are no pathologic masses or calcifications. IMPRESSION: No acute abnormalities in the abdomen. No change compared to 08/06/2021. Dictated by: Dictated on workstation # [id number]
== END ==
LOC: RAD 13:32
PROVIDERS: ATTEND Urology
DX: N20.2 Calculus of kidney with calculus of ureter (principal)
CPT/HCPCS: 74018

== ENCOUNTER → 2021-11-22 | Outpatient (CLI) | payer OTHER ==
--- NOTE | 2021-11-22 09:54 | Diagnostic Imaging Report ---
PROCEDURE: CT abdomen and pelvis without contrast. TECHNIQUE: Multiple contiguous axial images were obtained through the abdomen and pelvis without the use of intravenous contrast. Auto Exposure Controls were utilized during the CT exam to meet ALARA standards for radiation dose reduction. INDICATION: History of bilateral renal stones. Pain. EXAMINATION: CT abdomen and pelvis without contrast 11/22/2021. COMPARISON: 07/28/2021 FINDINGS: The visualized lung bases appear clear. The nonopacified abdominal viscera limited given lack of contrast. No gross acute abnormality appreciated within the liver or spleen. There is evidence of previous cholecystectomy. The pancreas and adrenal glands appear unremarkable. The right kidney unremarkable in appearance with no nephrolithiasis or hydronephrosis. There are no right-sided ureteral stones. On the left there is approximately 2 to 3 mm stone in the inferior pole of the left kidney, nonobstructive in nature. There is no hydronephrosis. There are no ureteral stones. There are postoperative changes throughout the distal sigmoid colon to the perirectal region. No acute process seen within the bowel loops. No free air. No ascites. Small fat-containing umbilical hernia noted. There is no acute osseous abnormality. Likely bone islands noted in the right femoral head and adjacent acetabulum stable from previous imaging. 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 2 to 3 mm stone in the inferior pole of left kidney nonobstructive in nature. No hydronephrosis or ureteral stones appreciated with no nephrolithiasis on the right. Incidental findings otherwise noted. Dictated by: Dictated on workstation # [id number]
--- NOTE | 2021-11-22 14:02 | Diagnostic Imaging Report ---
Indication: Right flank pain and history of kidney stones. Time of Exam: 9:19 AM Correlation is made with prior radiograph from 08/12/2021. Bowel gas pattern is unremarkable. There are postsurgical changes in the right abdomen. Vague calcific density overlies the lower pole of the left kidney consistent with known renal calculus. No other urinary tract calculi are seen. No ureteral calculi are detected. There are surgical clips in the gallbladder fossa. IMPRESSION: Left renal calculus. No other significant abnormality is seen. Dictated by: Dictated on workstation # [id number]
== END ==
LOC: RAD 09:02
PROVIDERS: ATTEND Urology
DX: N20.0 Calculus of kidney (principal)
CPT/HCPCS: 74018; 74176

== ENCOUNTER → 2021-12-23 | Outpatient (CLI) | payer OTHER ==
[2021-12-23 08:23] LABS: BASOPHILS % (AUTO) 1 % (0-10); EOSINOPHILS # (AUTO) 0.3 10^3/uL (0.0-0.3); EOSINOPHILS % (AUTO) 5 % (0-10); HEMATOCRIT 49 % (40-54); HEMOGLOBIN 16.1 g/dL (13.3-17.7); LYMPHOCYTES # (AUTO) 1.7 10^3/uL (1.0-4.0); LYMPHOCYTES % (AUTO) 27 % (12-44); MEAN CORPUSCULAR HEMOGLOBIN 30 pg (25-34); MEAN CORPUSCULAR HGB CONC 33 g/dL (32-36); MEAN CORPUSCULAR VOLUME 91 fL (80-99); MEAN PLATELET VOLUME 10.4 fL (9.0-12.2); MONOCYTES # (AUTO) 0.4 10^3/uL (0.0-1.0); MONOCYTES % (AUTO) 6 % (0-12); NEUTROPHILS # (AUTO) 3.7 10^3/uL (1.8-7.8); NEUTROPHILS % (AUTO) 61 % (42-75); PLATELET COUNT 146 10^3/uL (130-400); WHITE BLOOD COUNT 6.1 10^3/uL (4.3-11.0)
[2021-12-23 08:33] LABS: ALBUMIN 4.2 GM/DL (3.2-4.5); POTASSIUM 4.3 MMOL/L (3.6-5.0)
[2021-12-23 08:35] LABS: CALCIUM 9.1 MG/DL (8.5-10.1)
[2021-12-23 08:38] LABS: BILIRUBIN,TOTAL 0.5 MG/DL (0.1-1.0)
[2021-12-23 08:40] LABS: CREATININE SERUM 0.99 MG/DL (0.60-1.30)
== END ==
LOC: LAB 07:34
PROVIDERS: ATTEND Internal Medicine
DX: Z00.00 Encounter for general adult medical examination without abnormal findings (principal); K51.918 Ulcerative colitis, unspecified with other complication; E78.00 Pure hypercholesterolemia, unspecified; E78.1 Pure hyperglyceridemia; E53.8 Deficiency of other specified B group vitamins; E61.1 Iron deficiency; R73.9 Hyperglycemia, unspecified
CPT/HCPCS: 36415; 80053; 82465; 82607; 82728; 82746; 83036; 83540; 83550; 84478; 85025

== ENCOUNTER → 2021-12-25 | Outpatient (CLI) | payer OTHER | LOC: LAB 08:03 | PROVIDERS: ATTEND Internal Medicine | DX: K51.918 Ulcerative colitis, unspecified with other complication (principal) | CPT/HCPCS: 87324; 87449 ==

== ENCOUNTER → 2022-06-18 | Outpatient (CLI) | payer OTHER ==
[~2022-06-18] MED LIST changes: +ESCI10TA PO; +LACT1CAP58 PO; +LEVO-55 PO; -LEVO500T81 PO; +SIME125C PO
[2022-06-18 07:38] LABS: BASOPHILS % (AUTO) 1 % (0-10); EOSINOPHILS # (AUTO) 0.4 10^3/uL (0.0-0.3); EOSINOPHILS % (AUTO) 5 % (0-10); HEMATOCRIT 46 % (40-54); HEMOGLOBIN 15.6 g/dL (13.3-17.7); LYMPHOCYTES # (AUTO) 1.6 10^3/uL (1.0-4.0); LYMPHOCYTES % (AUTO) 21 % (12-44); MEAN CORPUSCULAR HEMOGLOBIN 31 pg (25-34); MEAN CORPUSCULAR HGB CONC 34 g/dL (32-36); MEAN CORPUSCULAR VOLUME 92 fL (80-99); MONOCYTES # (AUTO) 0.5 10^3/uL (0.0-1.0); MONOCYTES % (AUTO) 6 % (0-12); NEUTROPHILS # (AUTO) 5.2 10^3/uL (1.8-7.8); NEUTROPHILS % (AUTO) 68 % (42-75); PLATELET COUNT 167 10^3/uL (130-400); WHITE BLOOD COUNT 7.7 10^3/uL (4.3-11.0)
[2022-06-18 08:01] LABS: BILIRUBIN,TOTAL 0.5 MG/DL (0.1-1.0); CALCIUM 9.2 MG/DL (8.5-10.1); CREATININE SERUM 0.85 MG/DL (0.60-1.30); POTASSIUM 3.6 MMOL/L (3.6-5.0); TOTAL PROTEIN 6.8 GM/DL (6.4-8.2)
== END ==
LOC: LAB 07:18
PROVIDERS: ATTEND Internal Medicine
DX: Z00.00 Encounter for general adult medical examination without abnormal findings (principal); R73.9 Hyperglycemia, unspecified; E61.1 Iron deficiency; E78.00 Pure hypercholesterolemia, unspecified; E78.1 Pure hyperglyceridemia
CPT/HCPCS: 36415; 80053; 80061; 82607; 82728; 82746; 83036; 83540; 83550; 84443; 85025

== ENCOUNTER 2022-09-08 09:16 | Outpatient (CLI) | payer OTHER | END 2022-09-08 09:48 | LOC: SLEEP 09:16 | PROVIDERS: ATTEND Nurse Practitioner | DX: G47.33 Obstructive sleep apnea (adult) (pediatric) (principal); G47.10 Hypersomnia, unspecified | CPT/HCPCS: G0399 ==

== ENCOUNTER → 2022-12-26 | Outpatient (CLI) | payer OTHER ==
[2022-12-26 08:32] LABS: BASOPHILS % (AUTO) 1 % (0-10); EOSINOPHILS # (AUTO) 0.4 10^3/uL (0.0-0.3); EOSINOPHILS % (AUTO) 7 % (0-10); HEMATOCRIT 47 % (40-54); HEMOGLOBIN 15.6 g/dL (13.3-17.7); LYMPHOCYTES # (AUTO) 1.7 10^3/uL (1.0-4.0); LYMPHOCYTES % (AUTO) 33 % (12-44); MEAN CORPUSCULAR HEMOGLOBIN 31 pg (25-34); MEAN CORPUSCULAR HGB CONC 33 g/dL (32-36); MEAN CORPUSCULAR VOLUME 92 fL (80-99); MONOCYTES # (AUTO) 0.4 10^3/uL (0.0-1.0); MONOCYTES % (AUTO) 8 % (0-12); NEUTROPHILS # (AUTO) 2.7 10^3/uL (1.8-7.8); NEUTROPHILS % (AUTO) 52 % (42-75); PLATELET COUNT 154 10^3/uL (130-400); WHITE BLOOD COUNT 5.2 10^3/uL (4.3-11.0)
[2022-12-26 08:49] LABS: ALBUMIN 4.1 GM/DL (3.2-4.5); BILIRUBIN,TOTAL 0.6 MG/DL (0.1-1.0); CALCIUM 8.7 MG/DL (8.5-10.1); CREATININE SERUM 0.91 MG/DL (0.60-1.30)
== END ==
LOC: LAB 08:05
PROVIDERS: ATTEND Internal Medicine
DX: Z00.00 Encounter for general adult medical examination without abnormal findings (principal); D64.9 Anemia, unspecified; E78.00 Pure hypercholesterolemia, unspecified; E78.1 Pure hyperglyceridemia; R73.9 Hyperglycemia, unspecified
CPT/HCPCS: 36415; 80053; 82465; 82607; 82728; 82746; 83036; 83540; 83550; 84478; 85025